=== PATIENT | female | born 1950 | race Caucasian/White ===

== ENCOUNTER → 2018-01-04 | Outpatient (CLI) | payer MEDICARE ==
[2018-01-04 17:32] LABS: ANION GAP 8 MEQ/L (8-16); BLOOD UREA NITROGEN 19 MG/DL (7-18); CALCIUM LEVEL 9.1 MG/DL (8.8-10.2); CARBON DIOXIDE LEVEL 24 MEQ/L (21-32); CHLORIDE LEVEL 109 MEQ/L (98-107); CREATININE FOR GFR 1.42 MG/DL (0.55-1.30); GLOMERULAR FILTRATION RATE 39.5 (>45); GLUCOSE, FASTING 99 MG/DL (70-100); POTASSIUM SERUM 4.1 MEQ/L (3.5-5.1); SODIUM LEVEL 141 MEQ/L (136-145)
== END ==
LOC: M LRY 13:09
DX: N18.9 Chronic kidney disease, unspecified (principal)
CPT/HCPCS: 80048

== ENCOUNTER → 2018-01-06 | Outpatient (CLI) | payer MEDICARE, MEDICAID | LOC: M PLARAD 13:47 | DX: M48.061 Spinal stenosis, lumbar region without neurogenic claudication (principal); M51.26 Other intervertebral disc displacement, lumbar region | CPT/HCPCS: 72148 ==

== ENCOUNTER → 2018-01-11 | Outpatient (CLI) | payer MEDICARE | LOC: M PAIN 13:00 | DX: M43.06 Spondylolysis, lumbar region (principal); I10 Essential (primary) hypertension; K21.9 Gastro-esophageal reflux disease without esophagitis; E78.00 Pure hypercholesterolemia, unspecified; F17.210 Nicotine dependence, cigarettes, uncomplicated; Z79.899 Other long term (current) drug therapy; Z88.8 Allergy status to other drugs, medicaments and biological substances | CPT/HCPCS: G0463 ==

== ENCOUNTER → 2018-01-28 | Outpatient (REF) | payer MEDICARE ==
[2018-01-28 18:51] LABS: BASO # 0.1 10^3/uL (0.0-0.2); BASO % 1.3 % (0.0-1.0); EOS # 0.1 10^3/uL (0.0-0.50); EOS % 1.3 % (0.0-3.0); HEMATOCRIT 44.5 % (36.0-47.0); HEMOGLOBIN 15.3 g/dl (12.0-16.0); IMMATURE GRANULOCYTE % 0.2 % (0-3.0); LYMPH # 2.1 10^3/uL (1.5-4.5); LYMPH % 33.2 % (24.0-44.0); MEAN CORPUSCULAR HEMOGLOBIN 32.1 pg (27.0-33.0); MEAN CORPUSCULAR HGB CONC 34.4 g/dl (32.0-36.5); MEAN CORPUSCULAR VOLUME 93.3 fl (80.0-96.0); MONO # 0.5 10^3/uL (0.0-0.8); MONO % 7.7 % (0.0-5.0); NEUTROPHILS # 3.6 10^3/uL (1.8-7.7); NEUTROPHILS % 56.3 % (36.0-66.0); PLATELET COUNT, AUTOMATED 195 10^3/uL (150-450); RED BLOOD COUNT 4.77 10^6/uL (4.00-5.40); RED CELL DISTRIBUTION WIDTH 12.7 % (11.5-14.5); WHITE BLOOD COUNT 6.4 10^3/uL (4.0-10.0)
[2018-01-28 18:53] LABS: APPEARANCE, URINE CLEAR (CLEAR); BACTERIA, URINE AUTO NEGATIVE (NEGATIVE); BILIRUBIN, URINE AUTO NEGATIVE (NEGATIVE); BLOOD, URINE BLOOD NEGATIVE (NEGATIVE); COLOR, URINE STRAW (YELLOW); GLUCOSE, URINE (UA) AUTO NEGATIVE (NEGATIVE); KETONE, URINE AUTO NEGATIVE (NEGATIVE); LEUKOCYTE ESTERASE, URINE AUTO NEGATIVE (NEGATIVE); NITRITE, URINE AUTO NEGATIVE (NEGATIVE); PROTEIN, URINE AUTO NEGATIVE (NEGATIVE); RBC, URINE AUTO 3 /HPF (0-3); SPECIFIC GRAVITY URINE AUTO 1.006 (1.002-1.035); SQUAMOUS EPITHELIAL CELL UR AU 1 /HPF (0-6); UROBILINOGEN, URINE AUTO 0.2 mg/dL (0.0-2.0); WBC, URINE AUTO 0 /HPF (0-3)
[2018-01-28 19:03] LABS: ALBUMIN 3.9 GM/DL (3.2-5.2); ALBUMIN/GLOBULIN RATIO 1.15 (1.00-1.93); ALKALINE PHOSPHATASE 66 U/L (45-117); ALT/SGPT 19 U/L (12-78); ANION GAP 10 MEQ/L (8-16); AST/SGOT 10 U/L (7-37); BILIRUBIN,TOTAL 0.3 MG/DL (0.2-1.0); BLOOD UREA NITROGEN 21 MG/DL (7-18); CALCIUM LEVEL 9.3 MG/DL (8.8-10.2); CARBON DIOXIDE LEVEL 25 MEQ/L (21-32); CHLORIDE LEVEL 107 MEQ/L (98-107); CREATININE FOR GFR 1.29 MG/DL (0.55-1.30); GLOMERULAR FILTRATION RATE 44.2 (>45); GLUCOSE, FASTING 70 MG/DL (70-100); POTASSIUM SERUM 3.8 MEQ/L (3.5-5.1); SODIUM LEVEL 142 MEQ/L (136-145); TOTAL PROTEIN 7.3 GM/DL (6.4-8.2)
== END ==
LOC: M SFHCLERA 16:27
DX: N18.3 Chronic kidney disease, stage 3 (moderate) (principal); R34 Anuria and oliguria
CPT/HCPCS: 80053

== ENCOUNTER → 2018-02-08 | Outpatient (CLI) | payer MEDICARE | LOC: M PAIN 10:00 | DX: M43.06 Spondylolysis, lumbar region (principal); G89.29 Other chronic pain; R01.1 Cardiac murmur, unspecified; E11.9 Type 2 diabetes mellitus without complications; I10 Essential (primary) hypertension; M19.90 Unspecified osteoarthritis, unspecified site; K21.9 Gastro-esophageal reflux disease without esophagitis; E78.00 Pure hypercholesterolemia, unspecified; F17.210 Nicotine dependence, cigarettes, uncomplicated; Z79.891 Long term (current) use of opiate analgesic; Z79.899 Other long term (current) drug therapy; Z88.8 Allergy status to other drugs, medicaments and biological substances; Z86.79 Personal history of other diseases of the circulatory system | CPT/HCPCS: G0463 ==

== ENCOUNTER → 2018-03-23 | Outpatient (REF) | payer MEDICARE ==
[2018-03-23 17:22] LABS: BASO # 0.1 10^3/uL (0.0-0.2); BASO % 1.3 % (0.0-1.0); EOS # 0.1 10^3/uL (0.0-0.50); EOS % 1.1 % (0.0-3.0); HEMATOCRIT 41.4 % (36.0-47.0); HEMOGLOBIN 14.2 g/dl (12.0-15.5); IMMATURE GRANULOCYTE % 0.2 % (0-3.0); LYMPH # 1.7 10^3/uL (1.5-4.5); LYMPH % 27.4 % (24.0-44.0); MEAN CORPUSCULAR HEMOGLOBIN 31.8 pg (27.0-33.0); MEAN CORPUSCULAR HGB CONC 34.3 g/dl (32.0-36.5); MEAN CORPUSCULAR VOLUME 92.6 fl (80.0-96.0); MONO # 0.4 10^3/uL (0.0-0.8); MONO % 6.8 % (0.0-5.0); NEUTROPHILS # 3.9 10^3/uL (1.8-7.7); NEUTROPHILS % 63.2 % (36.0-66.0); PLATELET COUNT, AUTOMATED 202 10^3/uL (150-450); RED BLOOD COUNT 4.47 10^6/uL (4.00-5.40); WHITE BLOOD COUNT 6.2 10^3/uL (4.0-10.0)
[2018-03-23 17:45] LABS: ESTIMATED AVERAGE GLUCOSE 105 MG/DL (60-110); HEMOGLOBIN A1c 5.3 %
[2018-03-23 17:52] LABS: ALBUMIN 3.9 GM/DL (3.2-5.2); ALBUMIN/GLOBULIN RATIO 1.08 (1.00-1.93); ALKALINE PHOSPHATASE 71 U/L (45-117); ALT/SGPT 27 U/L (12-78); ANION GAP 8 MEQ/L (8-16); AST/SGOT 18 U/L (7-37); BILIRUBIN,TOTAL 0.3 MG/DL (0.2-1.0); BLOOD UREA NITROGEN 29 MG/DL (7-18); CALCIUM LEVEL 9.1 MG/DL (8.8-10.2); CARBON DIOXIDE LEVEL 28 MEQ/L (21-32); CHLORIDE LEVEL 104 MEQ/L (98-107); CHOLESTEROL LEVEL 344 MG/DL (<200); CREATININE FOR GFR 1.62 MG/DL (0.55-1.30); GLOMERULAR FILTRATION RATE 33.9 (>45); GLUCOSE, FASTING 100 MG/DL (70-100); HDL CHOLESTEROL 63 MG/DL (>40); LDL CHOLESTEROL 246.2 MG/DL (<100); MAGNESIUM LEVEL 2.2 MG/DL (1.8-2.4); NON-HDL-C 281 MG/DL; POTASSIUM SERUM 3.6 MEQ/L (3.5-5.1); SODIUM LEVEL 140 MEQ/L (136-145); TOTAL PROTEIN 7.5 GM/DL (6.4-8.2); TRIGLYCERIDES LEVEL 174 MG/DL (<150)
[2018-03-23 17:57] LABS: MALB URINE SIEMENS 5.5 MG/L; MAU/CREAT RATIO 4.3 MCG/MG (0.0-30.0)
== END ==
LOC: M SFHCLERA 10:29
DX: K21.9 Gastro-esophageal reflux disease without esophagitis (principal); N18.9 Chronic kidney disease, unspecified; Z79.899 Other long term (current) drug therapy
CPT/HCPCS: 83735

== ENCOUNTER → 2018-04-12 | Outpatient (CLI) | payer MEDICARE | LOC: M PAIN 10:00 | DX: G89.29 Other chronic pain (principal); M43.06 Spondylolysis, lumbar region; I10 Essential (primary) hypertension; K21.9 Gastro-esophageal reflux disease without esophagitis; E78.5 Hyperlipidemia, unspecified; F17.210 Nicotine dependence, cigarettes, uncomplicated; R01.1 Cardiac murmur, unspecified; Z79.899 Other long term (current) drug therapy; Z88.8 Allergy status to other drugs, medicaments and biological substances; E11.9 Type 2 diabetes mellitus without complications | CPT/HCPCS: G0463 ==

== ENCOUNTER → 2018-05-01 | Outpatient (CLI) | payer MEDICARE, MEDICAID | LOC: M RAD 11:07 | DX: Z12.31 Encounter for screening mammogram for malignant neoplasm of breast (principal) | CPT/HCPCS: 77067 ==

== ENCOUNTER 2018-06-20 07:36 | Day surgery (SDC) | payer MEDICARE, MEDICAID ==
[2018-06-20] MEDS: NS 1,000 ML IV (07:45)
[2018-06-20] MEDS ORDERED: PROPOFOL 200 MG/20 ML VIAL As Ordered ×2 (08:20→09:32)
[2018-06-20] MEDS ORDERED: LIDOCAINE 2% INJ 100 MG/5 ML SDV (FOR ANES.) As Ordered (08:20)
== END 2018-06-20 10:24 | disposition home or self-care (01) ==
LOC: M OPP 07:36
DX: Z12.11 Encounter for screening for malignant neoplasm of colon (principal); Z80.0 Family history of malignant neoplasm of digestive organs; D12.2 Benign neoplasm of ascending colon; K64.0 First degree hemorrhoids; K57.30 Diverticulosis of large intestine without perforation or abscess without bleeding; I12.9 Hypertensive chronic kidney disease with stage 1 through stage 4 chronic kidney disease, or unspecified chronic kidney disease; E78.5 Hyperlipidemia, unspecified; I25.10 Atherosclerotic heart disease of native coronary artery without angina pectoris; K21.9 Gastro-esophageal reflux disease without esophagitis; R12 Heartburn; K29.70 Gastritis, unspecified, without bleeding; R06.02 Shortness of breath; N18.9 Chronic kidney disease, unspecified; M19.90 Unspecified osteoarthritis, unspecified site; M54.9 Dorsalgia, unspecified; F32.9 Major depressive disorder, single episode, unspecified; F41.9 Anxiety disorder, unspecified; E11.9 Type 2 diabetes mellitus without complications; R56.9 Unspecified convulsions; J45.909 Unspecified asthma, uncomplicated; J44.9 Chronic obstructive pulmonary disease, unspecified; F17.210 Nicotine dependence, cigarettes, uncomplicated; Z88.1 Allergy status to other antibiotic agents; Z88.8 Allergy status to other drugs, medicaments and biological substances; Z79.82 Long term (current) use of aspirin; Z79.899 Other long term (current) drug therapy; Z80.1 Family history of malignant neoplasm of trachea, bronchus and lung
CPT/HCPCS: 45385

== ENCOUNTER → 2018-07-05 | Outpatient (CLI) | payer MEDICARE, MEDICAID | LOC: M LRY 17:18 | DX: R06.02 Shortness of breath (principal) | CPT/HCPCS: 71046; 94640 ==

== ENCOUNTER → 2018-07-25 | Outpatient (CLI) | payer MEDICARE, MEDICAID | LOC: M RAD 09:45 | DX: Z12.2 Encounter for screening for malignant neoplasm of respiratory organs (principal); F17.210 Nicotine dependence, cigarettes, uncomplicated | CPT/HCPCS: G0297 ==

== ENCOUNTER → 2018-11-09 | Outpatient (CLI) | payer MEDICARE, MEDICAID ==
[~2018-11-09] MED LIST: ASPI1TAB15 PO; BUSP10TA PO; CART240C3 PO; CINN1CAP6 PO; DULO1CAP PO; FENT75PA TD; FERR325T3 PO; FURO40TA2 PO; INVA1INJ IV; KLOR10TA76 PO; LEVA250T13 PO; LIDO1PAD TD; LOSA50TA5 PO; OMEG100011 PO; OMEP40CA2 PO; OXYC1TAB23 PO; PERC7.5T11 PO; ROSU5TAB4 PO; SERT50TA PO; SIMV40TA2 PO; SYNT25TA PO; TOPI50TA9 PO; TRAZ-160 PO; VITA50005 PO; VITMTA PO
--- NOTE | 2018-11-15 15:07 | DEXA ---
AP SPINE L1 - L4 0.989 -1.7 -0.1 LT FEMUR TOTAL 0.802 -1.6 -0.4 LT NECK 0.710 -2.4 -0.8 RT FEMUR TOTAL 0.814 -1.5 -0.3 RT NECK 0.765 -2.0 -0.4 TOTAL BODY TOTAL OTHER COMMENTS: There is low bone density of the spine and hips. FOLLOW-UP: Recommendation for the next bone density exam: 2 years. BLANCO
== END ==
LOC: M WHC 14:13
PROVIDERS: ATTEND Family Medicine
DX: Z13.820 Encounter for screening for osteoporosis (principal); M85.88 Other specified disorders of bone density and structure, other site; M85.851 Other specified disorders of bone density and structure, right thigh; M85.852 Other specified disorders of bone density and structure, left thigh

== ENCOUNTER → 2018-11-19 | Outpatient (REF) | payer MEDICARE | LOC: M SFHCLERA 11:16 | PROVIDERS: ATTEND Nurse Practitioner Family | DX: K52.9 Noninfective gastroenteritis and colitis, unspecified (principal) | CPT/HCPCS: 82270; 87507; G0463 ==

== ENCOUNTER → 2019-02-15 | Outpatient (CLI) | payer MEDICARE, MEDICAID ==
[~2019-02-15] MED LIST changes: +FENT75DI18 TD; -FENT75PA TD; +SERT-141 PO; -SERT50TA PO
--- NOTE | 2019-02-15 13:05 | PFTRPT ---
Height: 65.50 Inches Weight: 230.00 Lbs BSA: 2.11 Diagnosis: R06.00 DATE OF PROCEDURE: 02/15/2019 ORDERED BY: Luis Lopez Spirometry: Pre and post bronchodilator study of excellent technical quality. Forced vital capacity normal. FEV1 in proportion. Obstructive index is, therefore, normal. Flow Volume Loop: Expiratory limb of the flow volume loop is normal. Lung Volumes: Total lung capacity normal. Residual volume is in proportion. Diffusing Capacity: Diffusing capacity is reduced but is appropriate for alveolar volume. Hemoglobin: Hemoglobin acceptable at 14.9. Airway Mechanics: Airway resistance marginally elevated with concomitant decrease in airway conductance. IMPRESSION: Mild diffusing capacity impairment requires clinical correlation. MTDD
== END ==
LOC: M CARPUL 11:54
PROVIDERS: ATTEND Physician Assistant
DX: R94.2 Abnormal results of pulmonary function studies (principal); R06.00 Dyspnea, unspecified

== ENCOUNTER → 2019-03-08 | Outpatient (CLI) | payer MEDICARE, MEDICAID ==
[~2019-03-08] MED LIST changes: +METHACHOLINE KIT (J7674) INH ONE
--- NOTE | 2019-03-08 15:34 | PFTRPT ---
Height: 65.50 Inches Weight: 226.00 Lbs BSA: 2.10 Diagnosis: R06.00 DATE OF PROCEDURE: 03/08/2019 ORDERED BY: JV Carlos It was ordered as a methacholine challenge but is done as a pre and post bronchodilator study. Spirometry: Excellent technical quality. Forced vital capacity normal. FEV1 in proportion. Obstructive index is, therefore, normal. Flow Volume Loop: Expiratory limb of the flow volume loop is normal. Only a 10% improvement post bronchodilator administered. IMPRESSION: Normal baseline study without any bronchodilator response. MTDD
== END ==
LOC: M CARPUL 12:02
PROVIDERS: ATTEND Physician Assistant
DX: R06.00 Dyspnea, unspecified (principal)
CPT/HCPCS: 95070; J7674

== ENCOUNTER → 2019-04-26 | Outpatient (REF) | payer MEDICARE, MEDICAID ==
[~2019-04-26] MED LIST changes: -METHACHOLINE KIT (J7674) INH ONE; -TRAZ-160 PO; +TRAZ-252 PO
[2019-04-26 17:35] LABS: HEMOGLOBIN A1c 5.9 %
[2019-04-26 17:45] LABS: ALBUMIN 3.5 GM/DL (3.2-5.2); BILIRUBIN,TOTAL 0.4 MG/DL (0.2-1.0); CALCIUM LEVEL 9.3 MG/DL (8.8-10.2); CHOLESTEROL RISK RATIO 4.83 (<5); CREATININE FOR GFR 1.76 MG/DL (0.55-1.30); GLOMERULAR FILTRATION RATE 30.8 (>45); POTASSIUM SERUM 4.4 MEQ/L (3.5-5.1); THYROID STIMULATING HORMONE 2.09 uIU/ML (0.358-3.740); TOTAL PROTEIN 7.1 GM/DL (6.4-8.2)
== END ==
LOC: M SFHCLERA 12:28
PROVIDERS: ATTEND Family Medicine
DX: E78.5 Hyperlipidemia, unspecified (principal); I10 Essential (primary) hypertension
CPT/HCPCS: 80053; 80061; 83036; 84443; G0463

== ENCOUNTER → 2019-05-24 | Outpatient (CLI) | payer MEDICARE, MEDICAID ==
[~2019-05-24] MED LIST changes: -DULO1CAP PO; +DULO1CAP4 PO; +METHACHOLINE KIT (J7674) INH ONE; -ROSU5TAB4 PO; +ROSU5TAB5 PO
--- NOTE | 2019-05-24 12:44 | PFTRPT ---
Height: 65.50 Inches Weight: 230.00 Lbs BSA: 2.11 Diagnosis: R06.00 DATE OF PROCEDURE: 05/24/2019 ORDERED BY: Luis Lopez PA-C INTERPRETATION: Study of excellent technical quality. Under protocol, methacholine was administered. At a dose of 0.25 mg or 1.375 CDUs, a 27% decline in the FEV1 was noted. PC of 0.12 is significant. Flow rates did return to baseline post bronchodilator administration. IMPRESSION: Positive methacholine challenge study. MTDD
== END ==
LOC: M CARPUL 12:00
PROVIDERS: ATTEND Physician Assistant
DX: R06.00 Dyspnea, unspecified (principal)
CPT/HCPCS: 94070; 95070; J7674

== ENCOUNTER → 2019-05-25 | Outpatient (CLI) | payer MEDICARE, MEDICAID ==
[~2019-05-25] MED LIST changes: -METHACHOLINE KIT (J7674) INH ONE
--- NOTE | 2019-05-25 19:01 | REP ---
CT study of the chest without contrast: History: Short of breath. Pain. Question left rib fractures. Comparison CT study is a low-dose screening exam from July 25, 2018. CT findings: Preliminary digital director of vendor management radiograph is unremarkable. There is no evidence of pleural or pericardial effusion. No hilar or mediastinal mass or adenopathy is observed. Fairly extensive vascular calcification is seen. Gallbladder surgically absent. No adrenal lesion is observed. The visualized upper abdominal structures are otherwise unremarkable. No mediastinal mass or adenopathy. No hilar adenopathy is seen. On bone window settings, there is an area of sclerosis of the surrounding a linear cleft in the anterior end of the 6th left rib consistent with healing left rib fracture. This is new from July 25, 2018. No other rib fracture is appreciated. No bony destructive lesion is seen. Subcortical cyst formation is seen in the glenoid on the left. This is unchanged. Impression: Healing fracture anterior and left sixth rib. Otherwise no acute disease. Electronically Signed by Wagner Valladares MD 05/25/2019 08:27 P
== END ==
LOC: M RAD 12:24
PROVIDERS: ATTEND Internal Medicine Nephrology
DX: S22.32XD Fracture of one rib, left side, subsequent encounter for fracture with routine healing (principal); X58.XXXD Exposure to other specified factors, subsequent encounter

== ENCOUNTER → 2019-09-04 | Outpatient (REF) | payer MEDICARE, MEDICAID ==
[~2019-09-04] MED LIST changes: -OMEP40CA2 PO; +OMEP40CA97 PO
[2019-09-04 17:16] LABS: BILIRUBIN,TOTAL 0.5 MG/DL (0.2-1.0); CHOLESTEROL RISK RATIO 5.122 (<5); CREATININE FOR GFR 2.01 MG/DL (0.55-1.30); GLOMERULAR FILTRATION RATE 26.3 (>45); POTASSIUM SERUM 4.3 MEQ/L (3.5-5.1); TOTAL PROTEIN 7.6 GM/DL (6.4-8.2)
== END ==
LOC: M SFHCLERA 10:45
PROVIDERS: ATTEND Family Medicine
DX: I10 Essential (primary) hypertension (principal); E78.5 Hyperlipidemia, unspecified
CPT/HCPCS: 80053; 80061; 90682; G0008; G0463

== ENCOUNTER → 2019-10-16 | Outpatient (REF) | payer MEDICARE, MEDICAID ==
[~2019-10-16] MED LIST changes: -SIMV40TA2 PO; +SIMV40TA20 PO
[2019-10-16 15:49] LABS: HEMOGLOBIN A1c 5.8 %
[2019-10-16 15:53] LABS: FREE T4 0.83 NG/DL (0.76-1.46); THYROID STIMULATING HORMONE 1.69 uIU/ML (0.358-3.740); TOTAL T3 81.7 NG/DL (60.0-181.0)
== END ==
LOC: M LAB REF 14:00
PROVIDERS: ATTEND Nurse Practitioner Family
DX: E03.9 Hypothyroidism, unspecified (principal); R73.9 Hyperglycemia, unspecified

== ENCOUNTER → 2021-05-21 | Outpatient (CLI) | payer OTHER ==
[~2021-05-21] MED LIST changes: +ASPI-546 PO; -ASPI1TAB15 PO; +OMEP40CA4 PO; -OMEP40CA97 PO
--- NOTE | 2021-05-21 08:41 | REP ---
INDICATION: SPONDYLOLISTHESIS LUMBAR REGION. COMPARISON: Comparison MRI study of the lumbar spine is from September 21, 2019.. TECHNIQUE: Sagittal and axial T1 and T2-weighted scans are acquired in the usual fashion with and without fat saturation. Sequences include spin echo, turbo spin-echo, and STIR imaging sequences. FINDINGS: Lumbar vertebral body heights are preserved. There is diffuse degenerative disc disease and spondylosis change. There is a grade 1 degenerative, 5 mm, L4-5 spondylolisthesis. Alignment is otherwise normal. Axial and sagittal images at L4-5 demonstrate a change from the prior study. There is a new moderate to large left posterior disc protrusion at L4-5 which has a cranially extruded fragment extending along the posterior margin of the L4 vertebral body nearly to its superior endplate. This compresses the left ventral margin of the thecal sac and the exiting 5th lumbar root on the left. There is advanced osteoarthritic facet hypertrophy and ligamentum flavum hypertrophy at this level as well. Overall canal size is somewhat decreased. There is mild left-sided foraminal narrowing due to facet hypertrophy. At L5-S1, today's images again demonstrate a left paracentral focal disc protrusion which effaces the ventral epidural fat and contacts the left S1 root. No thecal sac deformity. The disc protrusion extends caudally a few mm and is unchanged from the 2019 prior study. There is facet osteoarthritis bilaterally also unchanged. At the L3-4 disc level, there is mild diffuse disc bulging unchanged. At L2-3, there is degenerative disc narrowing and diffuse disc bulging indenting the ventral margin of the thecal sac. There is left foraminal disc bulging producing mild left foraminal narrowing. These findings are unchanged. At the L1-2 disc level today's study again demonstrates degenerative disc narrowing and diffuse disc bulging. Incidental note is made of bilateral renal cortical cysts which appear to be unchanged. IMPRESSION: Degenerative spondylosis changes stable at each level since the 2019 study except for L4-5 where there is a new moderate to large cranially extruded L4-5 disc protrusion. There is some surrounding edema. Moderate thecal sac and left 5th lumbar root compression. <Electronically signed by Ankur Valladares > 05/21/21 [id number]
== END ==
LOC: M RAD 07:21
PROVIDERS: ATTEND Orthopaedic Surgery
DX: M43.16 Spondylolisthesis, lumbar region (principal)

== ENCOUNTER → 2021-05-27 | Outpatient (CLI) | payer OTHER, MEDICAID ==
[2021-05-27 17:29] LABS: CALCIUM LEVEL 9.8 MG/DL (8.8-10.2); CHOLESTEROL RISK RATIO 8.204 (<5); CREATININE FOR GFR 2.01 MG/DL (0.55-1.30); GLOMERULAR FILTRATION RATE 26.2 (>45); POTASSIUM SERUM 4.3 MEQ/L (3.5-5.1)
[2021-05-27 17:34] LABS: CREATININE, URINE 53.5 MG/DL; MALB URINE SIEMENS 79.2 MG/L
[2021-05-27 18:09] LABS: HEMOGLOBIN A1c 6.1 %
== END ==
LOC: M WUC 11:38
PROVIDERS: ATTEND Family Medicine
DX: E78.5 Hyperlipidemia, unspecified (principal); E11.9 Type 2 diabetes mellitus without complications; Z11.59 Encounter for screening for other viral diseases
CPT/HCPCS: 36415; 80048; 80061; 82043; 83036; 86803; G0463

== ENCOUNTER → 2021-07-02 | Outpatient (REF) | payer OTHER, MEDICAID | LOC: M LAB REF 17:25 | PROVIDERS: ATTEND Nurse Practitioner Family | DX: I82.402 Acute embolism and thrombosis of unspecified deep veins of left lower extremity (principal); E83.42 Hypomagnesemia ==

== ENCOUNTER → 2021-12-01 | Outpatient (CLI) | payer OTHER, MEDICAID ==
[~2021-12-01] MED LIST changes: -KLOR10TA76 PO; +POTA-136 PO
== END ==
LOC: M RAD 11:01
PROVIDERS: ATTEND Physician Assistant
DX: R91.8 Other nonspecific abnormal finding of lung field (principal)

== ENCOUNTER → 2022-02-02 | Outpatient (CLI) | payer OTHER, MEDICAID | LOC: M RAD 13:31 | PROVIDERS: ATTEND Nurse Practitioner Family | DX: N18.4 Chronic kidney disease, stage 4 (severe) (principal); N28.1 Cyst of kidney, acquired ==

== ENCOUNTER → 2022-04-14 | Outpatient (CLI) | payer MEDICAID, OTHER | LOC: M RAD 07:39 | PROVIDERS: ATTEND Nurse Practitioner Family | DX: I12.9 Hypertensive chronic kidney disease with stage 1 through stage 4 chronic kidney disease, or unspecified chronic kidney disease (principal); N18.4 Chronic kidney disease, stage 4 (severe) ==

== ENCOUNTER → 2022-04-21 | Outpatient (CLI) | payer OTHER | LOC: M WUC 10:50 | PROVIDERS: ATTEND Nurse Practitioner Family | DX: R06.02 Shortness of breath (principal) ==

== ENCOUNTER → 2022-04-21 | Outpatient (REF) | payer OTHER | LOC: M LAB REF 16:54 | PROVIDERS: ATTEND Nurse Practitioner Family | DX: R06.02 Shortness of breath (principal) ==

== ENCOUNTER → 2022-08-31 | Outpatient (CLI) | payer OTHER, MEDICAID | LOC: M RAD 11:34 | PROVIDERS: ATTEND Family Medicine | DX: M54.50 Low back pain, unspecified (principal) ==

== ENCOUNTER → 2022-09-07 | Outpatient (CLI) | payer OTHER, MEDICAID | LOC: M RAD 13:18 | PROVIDERS: ATTEND Family Medicine | DX: M54.50 Low back pain, unspecified (principal); N28.1 Cyst of kidney, acquired ==

== ENCOUNTER → 2022-10-11 | Outpatient (CLI) | payer OTHER | LOC: M RAD 16:12 | PROVIDERS: ATTEND Physician Assistant | DX: M51.36 Other intervertebral disc degeneration, lumbar region (principal); M51.37 Other intervertebral disc degeneration, lumbosacral region; M51.26 Other intervertebral disc displacement, lumbar region; M43.16 Spondylolisthesis, lumbar region ==

== ENCOUNTER → 2022-11-25 | Outpatient (CLI) | payer OTHER ==
[2022-11-25 10:24] LABS: ALBUMIN 3.7 G/DL (3.2-5.2); BILIRUBIN,TOTAL 0.4 MG/DL (0.3-1.2); CALCIUM LEVEL 9.3 MG/DL (8.3-10.6); CHOLESTEROL RISK RATIO 4.41 (<5); CREATININE FOR GFR 1.51 MG/DL (0.55-1.30); GLOMERULAR FILTRATION RATE 36.3 (>39); HDL CHOLESTEROL 44.2 MG/DL (>40); LDL CHOLESTEROL 101.6 MG/DL (<100); TOTAL PROTEIN 6.6 G/DL (5.7-8.2)
[2022-11-25 10:45] LABS: HEMOGLOBIN A1c 5.7 % (4.0-6.0)
[2022-11-25 13:35] LABS: CREATININE, URINE 46.8 MG/DL; CREATININE,RANDOM URINE 46.8 MG/DL; MAU/CREAT RATIO 288.4 MCG/MG (0.0-30.0)
[2022-11-25 13:40] LABS: APPEARANCE, URINE MANUAL CLEAR (CLEAR); COLOR, URINE MANUAL YELLOW (YELLOW); SPECIFIC GRAVITY,URINE MANUAL 1.003 (1.002-1.035)
[2022-11-25 13:41] LABS: BILIRUBIN, URINE MANUAL NEGATIVE (NEGATIVE); BLOOD URINE MANUAL NEGATIVE (NEGATIVE); GLUCOSE, URINE (UA) MANUAL NEGATIVE (NEGATIVE); KETONE, URINE MANUAL NEGATIVE (NEGATIVE); LEUKOCYTE ESTERASE, URINE MAN NEGATIVE (NEGATIVE); NITRITE, URINE MANUAL NEGATIVE (NEGATIVE); PROTEIN, URINE MANUAL 1+ mg/dL (NEGATIVE); UROBILINOGEN, URINE MANUAL NORMAL (NORMAL)
[2022-11-25 13:55] LABS: WBC, URINE 0-1 /hpf (0-3)
[2022-11-25 13:56] LABS: BACTERIA, URINE SMALL AMOUNT; HYALINE CAST, URINE NONE SEEN /lpf (0-1); RBC, URINE 0-1 /hpf (0-3); SQUAMOUS EPITHELIAL CELL URINE SMALL AMOUNT /hpf (SMALL AMT)
== END ==
LOC: M LAB 09:00
PROVIDERS: ATTEND Family Medicine
DX: N18.30 Chronic kidney disease, stage 3 unspecified (principal); E78.5 Hyperlipidemia, unspecified; E11.9 Type 2 diabetes mellitus without complications

== ENCOUNTER → 2022-12-13 | Outpatient (CLI) | payer OTHER, MEDICAID | LOC: M RAD 08:45 | PROVIDERS: ATTEND Physician Assistant | DX: Z12.2 Encounter for screening for malignant neoplasm of respiratory organs (principal); F17.218 Nicotine dependence, cigarettes, with other nicotine-induced disorders; J47.9 Bronchiectasis, uncomplicated ==

== ENCOUNTER → 2023-03-11 | Outpatient (CLI) | payer OTHER, MEDICAID ==
[~2023-03-11] MED LIST changes: +TOPI-254 PO; -TOPI50TA9 PO
== END ==
LOC: M RAD 10:38
PROVIDERS: ATTEND Physician Assistant
DX: R09.89 Other specified symptoms and signs involving the circulatory and respiratory systems (principal)

== ENCOUNTER → 2023-05-09 | Outpatient (CLI) | payer OTHER, MEDICAID ==
[~2023-05-09] MED LIST changes: +ALLO100T PO; +BUSP1TAB PO; +GABA-282 PO; +HYDR-3910 PO; +ISOS1TAB35 PO; +LOSA50TA28 PO; +POTA-149 PO; +SYMB16INH INH; +TIOT18INH INH
== END ==
LOC: M RAD 10:13
PROVIDERS: ATTEND Family Medicine
DX: M54.2 Cervicalgia (principal)

== ENCOUNTER 2023-05-23 11:07 | Day surgery (SDC) | payer OTHER ==
[~2023-05-23] VITALS: Ht 167.6 cm; Wt 108.9 kg
[~2023-05-23 11:07] MED LIST changes: +NS 1,000 ML IV ONE
[2023-05-23] MEDS ORDERED: oxyCODONE 5MG TAB PO STA (12:38)
[2023-05-23] MEDS ORDERED: propofoL 200 MG/20 ML VIAL As Ordered ONE ×3 (13:02→13:47)
[2023-05-23 13:58] VITALS: TEMP 97.5
[2023-05-23 14:19] VITALS: BP 187/79; O2SAT 97
== END 2023-05-23 14:26 | disposition home or self-care (01) ==
LOC: M OPP 11:07
PROVIDERS: ATTEND Internal Medicine Gastroenterology
DX: Z80.0 Family history of malignant neoplasm of digestive organs (principal); D12.6 Benign neoplasm of colon, unspecified; K64.0 First degree hemorrhoids; K57.30 Diverticulosis of large intestine without perforation or abscess without bleeding; F17.200 Nicotine dependence, unspecified, uncomplicated; Z79.82 Long term (current) use of aspirin; Z79.83 Long term (current) use of bisphosphonates; Z79.899 Other long term (current) drug therapy

== ENCOUNTER → 2024-01-12 | Outpatient (CLI) | payer OTHER ==
[~2024-01-12] MED LIST changes: -HYDR-3910 PO; +HYDR25TA87 PO; -NS 1,000 ML IV ONE; +TOPI-21 PO; -TOPI-254 PO
== END ==
LOC: M RAD 15:01
PROVIDERS: ATTEND Physician Assistant
DX: Z12.2 Encounter for screening for malignant neoplasm of respiratory organs (principal); F17.218 Nicotine dependence, cigarettes, with other nicotine-induced disorders; J84.9 Interstitial pulmonary disease, unspecified; I70.0 Atherosclerosis of aorta; I25.10 Atherosclerotic heart disease of native coronary artery without angina pectoris

== ENCOUNTER 2024-01-20 17:47 | Emergency (ER) | payer OTHER ==
[~2024-01-20] VITALS: Ht 165.1 cm; Wt 112.1 kg
[2024-01-20] MEDS: ASPIRIN 81MG CHEW TABLET PO ONE (18:40)
[2024-01-20 18:44] VITALS: BP 159/75
[2024-01-20] MEDS: NITROGLYCERIN 2% OINT 1 GM *U/D* PKT TOP ONE (18:44)
[2024-01-20 18:55] LABS: BASO # 0.1 10^3/uL (0.0-0.2); BASO % 1.2 % (0.0-1.0); EOS # 0.2 10^3/uL (0.0-0.5); EOS % 2.3 % (0.0-3.0); HEMATOCRIT 39.7 % (36.0-47.0); HEMOGLOBIN 13.1 g/dl (12.0-15.5); LYMPH # 2.5 10^3/uL (1.5-5.0); LYMPH % 32.3 % (24.0-44.0); MEAN CORPUSCULAR HEMOGLOBIN 31.9 pg (27.0-33.0); MEAN CORPUSCULAR VOLUME 96.6 fl (80.0-96.0); MONO # 0.5 10^3/uL (0.0-0.8); MONO % 6.1 % (2.0-8.0); NEUTROPHILS # 4.5 10^3/uL (1.5-8.5); NEUTROPHILS % 57.7 % (36.0-66.0); PLATELET COUNT, AUTOMATED 199 10^3/uL (150-450); RED BLOOD COUNT 4.11 10^6/uL (4.00-5.40); WHITE BLOOD COUNT 7.8 10^3/uL (4.0-10.0)
[2024-01-20 19:06] LABS: LIPASE 33 U/L (12-53)
[2024-01-20 19:08] LABS: ALBUMIN 3.7 G/DL (3.2-5.2); ALKALINE PHOSPHATASE 88 U/L (46-116); ALT/SGPT 20 U/L (7.0-40); AST/SGOT 17 U/L (<34); BILIRUBIN,DIRECT < 0.1 MG/DL (<0.4); BILIRUBIN,TOTAL 0.3 MG/DL (0.3-1.2); BLOOD UREA NITROGEN 22 MG/DL (9-23); CALCIUM LEVEL 8.7 MG/DL (8.3-10.6); CARBON DIOXIDE LEVEL 24 MMOL/L (20-31); CHLORIDE LEVEL 108 MMOL/L (98-107); CK-MB VALUE MASS 1.5 NG/ML (<3.6); CREATININE FOR GFR 1.46 MG/DL (0.55-1.30); GLOMERULAR FILTRATION RATE 37.6 (>39); GLUCOSE, FASTING 97 MG/DL (74-106); POTASSIUM SERUM 3.5 MMOL/L (3.5-5.1); SODIUM LEVEL 139 MMOL/L (136-145); TOTAL PROTEIN 6.7 G/DL (5.7-8.2)
[2024-01-20 19:10] LABS: THYROID STIMULATING HORMONE 2.216 uIU/ML (0.55-4.78)
[2024-01-20 19:11] LABS: FREE T4 0.71 NG/DL (0.89-1.76)
[2024-01-20 19:17] LABS: RSV AMPLIFICATION NEGATIVE (NEGATIVE)
[2024-01-20 19:23] LABS: CPK CREATINE PHOSPHOKINASE 158 U/L (34-145); MB/CK RELATIVE INDEX 0.94 (< OR =4)
[2024-01-20 20:09] LABS: CK-MB VALUE MASS 1.1 NG/ML (<3.6)
[2024-01-20 20:12] LABS: MB/CK RELATIVE INDEX 0.78 (< OR =4)
[2024-01-20] MEDS ORDERED: ISOS1TAB35 PO (20:54)
[2024-01-20 21:01] VITALS: BP 164/78; TEMP 98; O2SAT 96
== END 2024-01-20 21:28 | disposition home or self-care (01) ==
LOC: M ED 17:47
DX: I20.9 Angina pectoris, unspecified (principal); I11.9 Hypertensive heart disease without heart failure; E11.9 Type 2 diabetes mellitus without complications; N18.9 Chronic kidney disease, unspecified; F17.200 Nicotine dependence, unspecified, uncomplicated; Z88.0 Allergy status to penicillin; Z88.8 Allergy status to other drugs, medicaments and biological substances; Z79.82 Long term (current) use of aspirin; Z79.899 Other long term (current) drug therapy

== ENCOUNTER 2024-02-14 11:23 | Observation (INO) | payer OTHER, MEDICAID ==
[~2024-02-14] VITALS: Ht 165.1 cm; Wt 114.4 kg
[2024-02-14] MEDS ORDERED: ISOVUE-370 76% 100ML VIAL As Ordered ONE (11:35)
[2024-02-14 11:51] LABS: BASO # 0.1 10^3/uL (0.0-0.2); EOS # 0.1 10^3/uL (0.0-0.5); EOS % 1.7 % (0.0-3.0); HEMATOCRIT 40.5 % (36.0-47.0); HEMOGLOBIN 13.2 g/dl (12.0-15.5); LYMPH # 1.2 10^3/uL (1.5-5.0); LYMPH % 19.9 % (24.0-44.0); MEAN CORPUSCULAR HEMOGLOBIN 32.3 pg (27.0-33.0); MEAN CORPUSCULAR HGB CONC 32.6 g/dl (32.0-36.5); MONO # 0.3 10^3/uL (0.0-0.8); MONO % 5.7 % (2.0-8.0); NEUTROPHILS # 4.3 10^3/uL (1.5-8.5); NEUTROPHILS % 71.4 % (36.0-66.0); PLATELET COUNT, AUTOMATED 168 10^3/uL (150-450); RED BLOOD COUNT 4.09 10^6/uL (4.00-5.40)
[2024-02-14 12:04] LABS: INR 0.97; PARTIAL THROMBOPLASTIN TIME 26.7 SECONDS (24.8-34.2); PROTHROMBIN TIME 12.6 SECONDS (12.5-14.5)
[2024-02-14 12:05] VITALS: BP 186/78; TEMP 98.1; O2SAT 98
[2024-02-14 12:18] LABS: CREATININE FOR GFR 1.65 MG/DL (0.55-1.30); GLOMERULAR FILTRATION RATE 32.6 (>39); POTASSIUM SERUM 3.8 MMOL/L (3.5-5.1)
[2024-02-14] MEDS ORDERED: MED REC IN PROGRESS XX SCH (13:10)
[2024-02-14] MEDS: NS 1,000 ML IV ONE ×2 (13:30→16:48)
[2024-02-14] MEDS ORDERED: ISOS1TAB36 PO (13:57)
[2024-02-14] MEDS ORDERED: FAMO40TA3 PO (13:57)
[2024-02-14] MEDS ORDERED: LOSA100T46 PO (13:57)
[2024-02-14] MEDS ORDERED: FURO20TA2 PO (13:57)
[2024-02-14] MEDS ORDERED: MULT-40 PO (13:57)
[2024-02-14] MEDS ORDERED: HYDR-3713 PO (13:57)
[2024-02-14] MEDS ORDERED: ZOLO100T PO (13:57)
[2024-02-14] MEDS ORDERED: ROSU40TA4 PO (13:57)
[2024-02-14] MEDS ORDERED: CLOP75TA2 PO (13:57)
[2024-02-14] MEDS ORDERED: HOME MED LIST COMPLETE! XX SCH (14:00)
[2024-02-14 15:40] VITALS: BP 146/73; TEMP 97.3; O2SAT 98
[2024-02-14] MEDS: ENOXAPARIN 40MG/0.4ML SYRINGE (J1650 PER 10MG) SC ONE (15:50)
[2024-02-14] MEDS ORDERED: PILL CUTTER 1 EACH XX PRN (16:30)
[2024-02-14] MEDS ORDERED: NS 1,000 ML IV ONE (17:05)
[2024-02-14 17:25] VITALS: BP 210/100
[2024-02-14] MEDS ORDERED: cloNIDine 0.1MG TABLET PO ONE (17:30)
[2024-02-14] MEDS ORDERED: LOSARTAN 25 MG TAB PO ONE (17:30)
[2024-02-14] MEDS: hydrALAZINE 20MG/ML 1ML VIAL IV STA (17:34)
[2024-02-14 18:14] VITALS: BP 188/74
[2024-02-14] MEDS: ACETAMINOPHEN *IV* 1,000 MG in IV 1 EA IV ONE (19:51)
[2024-02-14 19:55] VITALS: BP 163/76; TEMP 97.1; O2SAT 98
[2024-02-14] MEDS: GABAPENTIN 300 MG CAP PO SCH (19:55)
[2024-02-14] MEDS: SERTRALINE 100 MG TAB PO SCH (19:55)
[2024-02-14] MEDS: busPIRone 5 MG TAB PO SCH (19:56)
[2024-02-14] MEDS: **hydrALAZINE HCL** 25 MG TAB PO SCH (19:56)
[2024-02-14] MEDS: ENOXAPARIN 40MG/0.4ML SYRINGE (J1650 PER 10MG) SC SCH (19:57)
[2024-02-14] MEDS: oxyCODONE 5MG TAB PO ONE (19:57)
[2024-02-14] MEDS: traZODone 50 MG TAB PO SCH (19:57)
[2024-02-14] MEDS: SYMBICORT 160/4.5MCG INHALER 6GM INH SCH (20:09)
[2024-02-14 23:55] VITALS: BP 173/73; TEMP 98.6; O2SAT 98
[2024-02-15 03:59] VITALS: BP 143/66; TEMP 97.3; O2SAT 96
[2024-02-15 06:24] LABS: HEMATOCRIT 35.6 % (36.0-47.0); HEMOGLOBIN 11.5 g/dl (12.0-15.5); MEAN CORPUSCULAR HEMOGLOBIN 32.3 pg (27.0-33.0); MEAN CORPUSCULAR HGB CONC 32.3 g/dl (32.0-36.5); PLATELET COUNT, AUTOMATED 148 10^3/uL (150-450); RED BLOOD COUNT 3.56 10^6/uL (4.00-5.40); WHITE BLOOD COUNT 4.3 10^3/uL (4.0-10.0)
[2024-02-15 07:11] LABS: CALCIUM LEVEL 8.7 MG/DL (8.3-10.6); CHOLESTEROL RISK RATIO 3.78 (<5); CREATININE FOR GFR 1.6 MG/DL (0.55-1.30); GLOMERULAR FILTRATION RATE 33.8 (>39); HDL CHOLESTEROL 40.4 MG/DL (>40); LDL CHOLESTEROL 71.4 MG/DL (<100); NON-HDL-C 112.6 MG/DL; POTASSIUM SERUM 3.8 MMOL/L (3.5-5.1)
[2024-02-15 07:31] VITALS: BP 190/79; TEMP 97.1; O2SAT 94
[2024-02-15] MEDS: TIOTROPIUM INHALER/CAPSULE (SPIRIVA) INH SCH (08:39)
[2024-02-15] MEDS: CLOPIDOGREL 75 MG TAB PO SCH (09:34)
[2024-02-15] MEDS: allopurinoL 100 MG TAB PO SCH (09:34)
[2024-02-15] MEDS: ASPIRIN 81MG ENTERIC TABLET PO SCH (09:34)
[2024-02-15] MEDS: ROSUVASTATIN 10 MG TAB (CRESTOR) PO SCH (09:34)
[2024-02-15] MEDS: FAMOTIDINE 20 MG TAB PO SCH (09:34)
[2024-02-15] MEDS: TOPIRAMATE (TopAMAX) 25 MG TAB PO SCH (09:42)
[2024-02-15] MEDS: dilTIAZem 120MG **CD** CAPSULE PO SCH (09:42)
[2024-02-15] MEDS: LOSARTAN 50MG TABLET PO SCH (09:43)
[2024-02-15] MEDS: FUROSEMIDE 40 MG TAB PO SCH (09:43)
[2024-02-15] MEDS: ISOSORBIDE MON. (IMDUR) 60MG XR TAB PO SCH (09:44)
[2024-02-15 11:44] VITALS: BP 142/67; TEMP 97.4; O2SAT 97
[2024-02-15] MEDS: FLUZONE HIGH DOSE(65YR UP)QUAD/PF 240MCG/0.7ML SYRINGE IM.IMMUN ONE (14:22)
[2024-02-15] MEDS: PERCOCET 5MG/325MG TAB PO PRN (15:05)
[2024-02-15 16:00] VITALS: BP 136/62; TEMP 96.4; O2SAT 98
[2024-02-15 19:39] VITALS: BP 149/65; TEMP 98.5; O2SAT 93
[2024-02-15] MEDS: FUROSEMIDE 20 MG TAB PO SCH (20:51)
[2024-02-15 23:05] VITALS: BP 130/62; TEMP 98.3; O2SAT 96
[2024-02-16] VITALS (8 sets, daily range): BP systolic 105–145; BP diastolic 51–82; TEMP 97.5–98.7; O2SAT 94–100
[2024-02-16 06:13] LABS: HEMATOCRIT 34.2 % (36.0-47.0); MEAN CORPUSCULAR HGB CONC 32.2 g/dl (32.0-36.5); MEAN CORPUSCULAR VOLUME 99.4 fl (80.0-96.0); PLATELET COUNT, AUTOMATED 150 10^3/uL (150-450); RED BLOOD COUNT 3.44 10^6/uL (4.00-5.40); WHITE BLOOD COUNT 5.2 10^3/uL (4.0-10.0)
[2024-02-16 06:35] LABS: CALCIUM LEVEL 8.7 MG/DL (8.3-10.6); CREATININE FOR GFR 1.68 MG/DL (0.55-1.30); POTASSIUM SERUM 3.7 MMOL/L (3.5-5.1)
[2024-02-16] MEDS: ISOSORBIDE MON. (IMDUR) 30MG XR TAB PO SCH (08:35)
[2024-02-16] MEDS ORDERED: TRIAMCINOLONE ACET 0.1% OINTMENT 80GM TOP SCH (21:00)
[2024-02-16] MEDS: diphenhydrAMINE CREAM 30GM TOP SCH (21:35)
[2024-02-17 04:47] VITALS: BP 123/58; TEMP 97.4; O2SAT 95
[2024-02-17 06:05] LABS: MEAN CORPUSCULAR HEMOGLOBIN 32.2 pg (27.0-33.0); MEAN CORPUSCULAR HGB CONC 32.4 g/dl (32.0-36.5); MEAN CORPUSCULAR VOLUME 99.4 fl (80.0-96.0); PLATELET COUNT, AUTOMATED 148 10^3/uL (150-450); RED BLOOD COUNT 3.42 10^6/uL (4.00-5.40); WHITE BLOOD COUNT 4.8 10^3/uL (4.0-10.0)
[2024-02-17 06:27] LABS: CALCIUM LEVEL 8.9 MG/DL (8.3-10.6); CREATININE FOR GFR 1.75 MG/DL (0.55-1.30); GLOMERULAR FILTRATION RATE 30.5 (>39); POTASSIUM SERUM 4.3 MMOL/L (3.5-5.1)
[2024-02-17 07:35] VITALS: BP 151/65; TEMP 97.2; O2SAT 93
[2024-02-17 08:55] VITALS: BP 152/62
== END 2024-02-17 12:19 | disposition home health service (06) ==
LOC: M ED 11:23 → EDBD 11:23 → M ED INP 13:11 → INTOOBSV 13:11 → M PCU 15:33
PROVIDERS: ADMIT General Practice; ATTEND General Practice
DX: R20.2 Paresthesia of skin (principal); I65.23 Occlusion and stenosis of bilateral carotid arteries; M43.16 Spondylolisthesis, lumbar region; M51.26 Other intervertebral disc displacement, lumbar region; I25.10 Atherosclerotic heart disease of native coronary artery without angina pectoris; Z98.61 Coronary angioplasty status; F17.210 Nicotine dependence, cigarettes, uncomplicated; J44.9 Chronic obstructive pulmonary disease, unspecified; E78.5 Hyperlipidemia, unspecified; I10 Essential (primary) hypertension; Z79.82 Long term (current) use of aspirin; Z88.1 Allergy status to other antibiotic agents; Z88.8 Allergy status to other drugs, medicaments and biological substances; Z79.899 Other long term (current) drug therapy; Z23 Encounter for immunization
CPT/HCPCS: 36415; 70450; 70496; 70498; 70551; 71045; 72141; 72148; 80047; 80048; 80061; 85025; 85027; 85610; 85730; 90662; 93005; 93041; 93306; 94640; 94760; 96372; 96374; 96375; 96376; 97116; 97161; 97165; 97530; 97535; 99285; G0008; G0378; J0131; J0360; J1650; Q9967

== ENCOUNTER → 2024-05-22 | Outpatient (CLI) | payer OTHER, MEDICAID ==
[~2024-05-22] MED LIST changes: +CLOP75TA2 PO; +FAMO40TA3 PO; +FURO20TA2 PO; +HYDR-3713 PO; +ISOS1TAB36 PO; +LOSA100T46 PO; +MULT-40 PO; +ROSU40TA63 PO; +ROSU5TAB40 PO; -ROSU5TAB5 PO; +ZOLO100T PO
== END ==
LOC: M RAD 10:11
PROVIDERS: ATTEND Physician Assistant
DX: R51.9 Headache, unspecified (principal)

== ENCOUNTER → 2024-05-31 | Outpatient (CLI) | payer OTHER, MEDICAID | LOC: M RAD 13:20 | PROVIDERS: ATTEND Family Medicine | DX: M19.012 Primary osteoarthritis, left shoulder (principal) ==

== ENCOUNTER 2024-06-28 21:35 | Emergency (ER) | payer OTHER, MEDICAID ==
[~2024-06-28] VITALS: Ht 170.2 cm; Wt 123.5 kg
[2024-06-28] MEDS: NORCO, ANEXSIA 5/325MG TABLET (HYDROcodone/ACETAMINOPHEN) PO ONE (23:18)
[2024-06-28 23:24] LABS: BASO # 0.1 10^3/uL (0.0-0.2); BASO % 0.9 % (0.0-1.0); BLOOD UREA NITROGEN 32 MG/DL (9-23); CARBON DIOXIDE LEVEL 25 MMOL/L (20-31); CHLORIDE LEVEL 110 MMOL/L (98-107); CK-MB VALUE MASS < 1.0 NG/ML (<3.6); CREATININE FOR GFR 1.89 MG/DL (0.55-1.30); EOS # 0.3 10^3/uL (0.0-0.5); EOS % 4.3 % (0.0-3.0); GLOMERULAR FILTRATION RATE 27.9 (>39); GLUCOSE, FASTING 130 MG/DL (74-106); HEMATOCRIT 35.2 % (36.0-47.0); HEMOGLOBIN 11.5 g/dl (12.0-15.5); LYMPH # 1.8 10^3/uL (1.5-5.0); LYMPH % 22.9 % (24.0-44.0); MEAN CORPUSCULAR HEMOGLOBIN 32.3 pg (27.0-33.0); MEAN CORPUSCULAR HGB CONC 32.7 g/dl (32.0-36.5); MEAN CORPUSCULAR VOLUME 98.9 fl (80.0-96.0); MONO # 0.5 10^3/uL (0.0-0.8); MONO % 6.5 % (2.0-8.0); NEUTROPHILS % 65.3 % (36.0-66.0); PLATELET COUNT, AUTOMATED 176 10^3/uL (150-450); POTASSIUM SERUM 4.4 MMOL/L (3.5-5.1); RED BLOOD COUNT 3.56 10^6/uL (4.00-5.40); SODIUM LEVEL 141 MMOL/L (136-145); WHITE BLOOD COUNT 7.7 10^3/uL (4.0-10.0)
[2024-06-28 23:33] LABS: CPK CREATINE PHOSPHOKINASE 109 U/L (34-145); MB/CK RELATIVE INDEX 0.91 (< OR =4)
[2024-06-28 23:40] LABS: INR 1.07; PARTIAL THROMBOPLASTIN TIME 28.3 SECONDS (24.8-34.2); PROTHROMBIN TIME 13.6 SECONDS (12.5-14.5)
[2024-06-29] MEDS: NS 1,000 ML IV ONE (00:10)
[2024-06-29] MEDS ORDERED: ISOVUE-370 76% 100ML VIAL As Ordered ONE (00:21)
[2024-06-29 01:45] LABS: CK-MB VALUE MASS < 1.0 NG/ML (<3.6)
[2024-06-29 01:46] LABS: CPK CREATINE PHOSPHOKINASE 87 U/L (34-145); MB/CK RELATIVE INDEX 1.14 (< OR =4)
[2024-06-29 04:45] VITALS: BP 127/60; TEMP 97.4; O2SAT 96
== END 2024-06-29 05:08 | disposition home or self-care (01) ==
LOC: EDBD 21:35 → MERGE 21:35 → M ED 21:35
DX: S00.83XA Contusion of other part of head, initial encounter (principal); W06.XXXA Fall from bed, initial encounter; Y92.009 Unspecified place in unspecified non-institutional (private) residence as the place of occurrence of the external cause; Y93.89 Activity, other specified; Y99.9 Unspecified external cause status; I10 Essential (primary) hypertension; E78.5 Hyperlipidemia, unspecified; K21.9 Gastro-esophageal reflux disease without esophagitis; Z86.73 Personal history of transient ischemic attack (TIA), and cerebral infarction without residual deficits; Z87.440 Personal history of urinary (tract) infections; Z79.82 Long term (current) use of aspirin; Z79.899 Other long term (current) drug therapy; Z88.8 Allergy status to other drugs, medicaments and biological substances
CPT/HCPCS: 70450; 70486; 70496; 70498; 71045; 72125; 73030; 80048; 82550; 82553; 84484; 85025; 85610; 85730; 93005; 93041; 94760; 99291; Q9967

== ENCOUNTER → 2024-07-03 | Outpatient (CLI) | payer MEDICAID, OTHER | LOC: M RAD 14:47 | PROVIDERS: ATTEND Nurse Practitioner Family | DX: N17.9 Acute kidney failure, unspecified (principal); Q61.4 Renal dysplasia; N28.81 Hypertrophy of kidney ==

== ENCOUNTER → 2024-07-05 | Outpatient (REF) | payer OTHER, MEDICAID ==
[2024-07-05 12:31] LABS: BASO # 0.1 10^3/uL (0.0-0.2); BASO % 1.3 % (0.0-1.0); EOS # 0.3 10^3/uL (0.0-0.5); EOS % 4.4 % (0.0-3.0); HEMATOCRIT 38.5 % (36.0-47.0); HEMOGLOBIN 12.6 g/dl (12.0-15.5); LYMPH # 1.4 10^3/uL (1.5-5.0); LYMPH % 23.1 % (24.0-44.0); MEAN CORPUSCULAR HEMOGLOBIN 32.4 pg (27.0-33.0); MEAN CORPUSCULAR HGB CONC 32.7 g/dl (32.0-36.5); MONO # 0.5 10^3/uL (0.0-0.8); MONO % 8.1 % (2.0-8.0); NEUTROPHILS # 3.9 10^3/uL (1.5-8.5); NEUTROPHILS % 62.8 % (36.0-66.0); PLATELET COUNT, AUTOMATED 175 10^3/uL (150-450); RED BLOOD COUNT 3.89 10^6/uL (4.00-5.40); WHITE BLOOD COUNT 6.2 10^3/uL (4.0-10.0)
[2024-07-05 12:40] LABS: THYROID STIMULATING HORMONE 3.928 uIU/ML (0.55-4.78)
[2024-07-05 12:41] LABS: ALBUMIN 3.7 G/DL (3.2-5.2); BILIRUBIN,TOTAL 0.3 MG/DL (0.3-1.2); CALCIUM LEVEL 9.2 MG/DL (8.3-10.6); CHOLESTEROL RISK RATIO 3.66 (<5); CREATININE FOR GFR 1.7 MG/DL (0.55-1.30); FREE T4 0.84 NG/DL (0.89-1.76); GLOMERULAR FILTRATION RATE 31.5 (>39); HDL CHOLESTEROL 47.5 MG/DL (>40); LDL CHOLESTEROL 89.3 MG/DL (<100); NON-HDL-C 126.5 MG/DL; POTASSIUM SERUM 3.8 MMOL/L (3.5-5.1); TOTAL PROTEIN 6.7 G/DL (5.7-8.2)
[2024-07-05 12:48] LABS: HEMOGLOBIN A1c 6.6 % (4.0-6.0)
== END ==
LOC: M SFHCLERA 08:00
PROVIDERS: ATTEND Family Medicine
DX: E11.22 Type 2 diabetes mellitus with diabetic chronic kidney disease (principal); E66.01 Morbid (severe) obesity due to excess calories; E78.5 Hyperlipidemia, unspecified

== ENCOUNTER → 2024-07-11 | Outpatient (CLI) | payer OTHER, MEDICAID | LOC: M WHC 12:36 | PROVIDERS: ATTEND Family Medicine | DX: Z12.31 Encounter for screening mammogram for malignant neoplasm of breast (principal) ==

== ENCOUNTER → 2024-11-21 | Outpatient (REF) | payer OTHER, MEDICAID ==
[~2024-11-21] MED LIST changes: +GABA-1172 PO; -GABA-282 PO; -ROSU40TA63 PO; +ROSU40TA81 PO; -ROSU5TAB40 PO; +ROSU5TAB49 PO
== END ==
LOC: M LAB REF 17:04
PROVIDERS: ATTEND Nurse Practitioner Family
DX: N39.0 Urinary tract infection, site not specified (principal)

== ENCOUNTER → 2025-01-02 | Outpatient (CLI) | payer MEDICAID, OTHER ==
[2025-01-02 12:41] LABS: BASO # 0.1 10^3/uL (0.0-0.2); BASO % 1.2 % (0.0-1.0); EOS # 0.2 10^3/uL (0.0-0.5); HEMATOCRIT 39.3 % (36.0-47.0); HEMOGLOBIN 12.6 g/dl (12.0-15.5); LYMPH # 1.1 10^3/uL (1.5-5.0); LYMPH % 18.1 % (24.0-44.0); MEAN CORPUSCULAR HEMOGLOBIN 31.9 pg (27.0-33.0); MEAN CORPUSCULAR HGB CONC 32.1 g/dl (32.0-36.5); MEAN CORPUSCULAR VOLUME 99.5 fl (80.0-96.0); MONO # 0.4 10^3/uL (0.0-0.8); MONO % 6.7 % (2.0-8.0); NEUTROPHILS # 4.2 10^3/uL (1.5-8.5); NEUTROPHILS % 69.8 % (36.0-66.0); PLATELET COUNT, AUTOMATED 169 10^3/uL (150-450); RED BLOOD COUNT 3.95 10^6/uL (4.00-5.40)
[2025-01-02 13:06] LABS: ALBUMIN 3.8 G/DL (3.2-5.2); BILIRUBIN,TOTAL 0.3 MG/DL (0.3-1.2); CALCIUM LEVEL 9.2 MG/DL (8.3-10.6); CREATININE FOR GFR 1.79 MG/DL (0.55-1.30); GLOMERULAR FILTRATION RATE 29.6 (>39); POTASSIUM SERUM 3.8 MMOL/L (3.5-5.1)
== END ==
LOC: M LAB 12:08
PROVIDERS: ATTEND Internal Medicine Cardiovascular Disease
DX: N18.9 Chronic kidney disease, unspecified (principal); I12.9 Hypertensive chronic kidney disease with stage 1 through stage 4 chronic kidney disease, or unspecified chronic kidney disease

== ENCOUNTER 2025-03-14 15:27 | Emergency (ER) | payer OTHER ==
[~2025-03-14] VITALS: Ht 165.1 cm; Wt 110.9 kg
[2025-03-14 15:55] VITALS: BP 187/81
[2025-03-14] MEDS: NITROGLYCERIN 0.4 MG SUBL TABLET SL PRN (15:55)
[2025-03-14 15:56] LABS: BASO # 0.1 10^3/uL (0.0-0.2); BASO % 0.9 % (0.0-1.0); EOS # 0.4 10^3/uL (0.0-0.5); EOS % 4.9 % (0.0-3.0); HEMATOCRIT 34.7 % (36.0-47.0); HEMOGLOBIN 11.2 g/dl (12.0-15.5); LYMPH # 1.2 10^3/uL (1.5-5.0); MEAN CORPUSCULAR HEMOGLOBIN 31.9 pg (27.0-33.0); MEAN CORPUSCULAR HGB CONC 32.3 g/dl (32.0-36.5); MEAN CORPUSCULAR VOLUME 98.9 fl (80.0-96.0); MONO # 0.6 10^3/uL (0.0-0.8); MONO % 7.3 % (2.0-8.0); NEUTROPHILS # 5.9 10^3/uL (1.5-8.5); NEUTROPHILS % 71.7 % (36.0-66.0); PLATELET COUNT, AUTOMATED 153 10^3/uL (150-450); RED BLOOD COUNT 3.51 10^6/uL (4.00-5.40); WHITE BLOOD COUNT 8.2 10^3/uL (4.0-10.0)
[2025-03-14 16:26] LABS: CK-MB VALUE MASS < 1.0 NG/ML (<3.6)
[2025-03-14 16:28] LABS: BLOOD UREA NITROGEN 26 MG/DL (9-23); CALCIUM LEVEL 8.7 MG/DL (8.3-10.6); CARBON DIOXIDE LEVEL 24 MMOL/L (20-31); CHLORIDE LEVEL 106 MMOL/L (98-107); CPK CREATINE PHOSPHOKINASE 65 U/L (34-145); CREATININE FOR GFR 2.16 MG/DL (0.55-1.30); GLOMERULAR FILTRATION RATE 23.8 (>39); GLUCOSE, FASTING 128 MG/DL (74-106); MB/CK RELATIVE INDEX 1.53 (< OR =4); POTASSIUM SERUM 3.8 MMOL/L (3.5-5.1); SODIUM LEVEL 139 MMOL/L (136-145)
[2025-03-14 16:29] LABS: PROTHROMBIN TIME 13.5 SECONDS (12.5-14.5)
[2025-03-14 17:36] LABS: CK-MB VALUE MASS < 1.0 NG/ML (<3.6); CPK CREATINE PHOSPHOKINASE 151 U/L (34-145); MB/CK RELATIVE INDEX 0.66 (< OR =4)
[2025-03-14] MEDS ORDERED: HEPARIN SOD 5000 UNITS/ML 1 ML VIAL/SYRINGE IV PRN (18:05)
[2025-03-14] MEDS: HEPARIN SOD 5000 UNITS/ML 1 ML VIAL/SYRINGE IV ONE (18:27)
[2025-03-14] MEDS: HEPARIN DRIP 25,000 UNITS in IV 1 EA IV SCH (18:29)
[2025-03-14] MEDS ORDERED: MORPHINE 2 MG/ML 1 ML VIAL IV PRN (20:00)
[2025-03-14] MEDS ORDERED: NITROGLYCERIN 0.4 MG SUBL TABLET SL PRN (20:00)
[2025-03-14 20:04] LABS: CK-MB VALUE MASS < 1.0 NG/ML (<3.6)
[2025-03-14 20:05] LABS: CPK CREATINE PHOSPHOKINASE 57 U/L (34-145); MB/CK RELATIVE INDEX 1.75 (< OR =4)
[2025-03-14] MEDS: MORPHINE 2 MG/ML 1 ML VIAL IV PRN (20:55)
[2025-03-14] MEDS: LEVALBUTEROL 1.25 MG 0.5ML CONCENTRATE NEB INH SCH (21:24)
[2025-03-14] MEDS: CLOPIDOGREL 300 MG TAB PO ONE (21:31)
[2025-03-14] MEDS: ASPIRIN 81 MG CHEWABLE TABLET PO ONE (21:31)
[2025-03-14] MEDS: NS (Normal Saline) 0.9% 1,000 ML IV SCH (21:32)
[2025-03-14] MEDS ORDERED: RANO500T2 PO (21:34)
[2025-03-14] MEDS ORDERED: ACET-897 PO (21:35)
[2025-03-14] MEDS ORDERED: POTA-151 PO (21:41)
[2025-03-14] MEDS ORDERED: HYDR50TA46 PO (21:46)
[2025-03-14] MEDS ORDERED: NITR0.4S14 SL (21:46)
[2025-03-14] MEDS ORDERED: CALC1CAP31 PO (21:46)
[2025-03-14] MEDS ORDERED: HOME MED LIST COMPLETE! XX SCH (21:50)
[2025-03-14] MEDS ORDERED: MED REC COMMENT (21:50)
[2025-03-14] MEDS: AZITHROMYCIN 250 MG TABLET PO SCH (23:25)
[2025-03-15 06:35] VITALS: BP 182/79; TEMP 97.4; O2SAT 94
[2025-03-15] MEDS ORDERED: ATORVASTATIN 20 MG TAB PO SCH (09:00)
[2025-03-15] MEDS ORDERED: atenoloL 50 MG TAB PO SCH (09:00)
[2025-03-15] MEDS ORDERED: CLOPIDOGREL 75 MG TAB PO SCH (09:00)
[2025-03-15] MEDS ORDERED: PANTOPRAZOLE 40MG TAB PO SCH (09:00)
[2025-03-15] MEDS ORDERED: LISINOPRIL 2.5 MG TAB PO SCH (09:00)
[2025-03-15] MEDS ORDERED: ASPIRIN ENTERIC 325 MG TAB PO SCH (09:00)
[2025-03-15] MEDS ORDERED: dilTIAZem 120 MG **CD** CAPSULE PO SCH (09:00)
== END 2025-03-15 08:26 | disposition short-term general hospital (02) ==
LOC: EDBD 15:27 → M ED 15:27
DX: I20.0 Unstable angina (principal); E11.9 Type 2 diabetes mellitus without complications; E78.5 Hyperlipidemia, unspecified; K21.9 Gastro-esophageal reflux disease without esophagitis; J44.9 Chronic obstructive pulmonary disease, unspecified; I12.9 Hypertensive chronic kidney disease with stage 1 through stage 4 chronic kidney disease, or unspecified chronic kidney disease; F41.9 Anxiety disorder, unspecified; F32.A Depression, unspecified; Z95.5 Presence of coronary angioplasty implant and graft; Z87.891 Personal history of nicotine dependence; Z79.82 Long term (current) use of aspirin; Z79.899 Other long term (current) drug therapy; Z88.1 Allergy status to other antibiotic agents; Z88.8 Allergy status to other drugs, medicaments and biological substances

== ENCOUNTER → 2025-07-25 | Outpatient (REF) | payer OTHER, MEDICAID ==
[~2025-07-25] MED LIST changes: +ACET-897 PO; +CALC1CAP31 PO; +HYDR50TA46 PO; +MED REC COMMENT; +NITR0.4S14 SL; +POTA-151 PO; +RANO500T2 PO
[2025-07-25 19:16] LABS: BASO # 0.1 10^3/uL (0.0-0.2); BASO % 1.3 % (0.0-1.0); EOS # 0.4 10^3/uL (0.0-0.5); EOS % 7.0 % (0.0-3.0); LYMPH # 1.2 10^3/uL (1.5-5.0); LYMPH % 22.0 % (24.0-44.0); MONO # 0.5 10^3/uL (0.0-0.8); MONO % 9.5 % (2.0-8.0); NEUTROPHILS # 3.2 10^3/uL (1.5-8.5); NEUTROPHILS % 60.0 % (36.0-66.0); PLATELET COUNT, AUTOMATED 171 10^3/uL (150-450)
[2025-07-25 19:26] LABS: ALT/SGPT 30.0 U/L (7.0-40); AST/SGOT 44.0 U/L (<34); CALCIUM LEVEL 9.8 MG/DL (8.3-10.6); CARBON DIOXIDE LEVEL 27.0 MMOL/L (20-31); CHLORIDE LEVEL 103.0 MMOL/L (98-107); CHOLESTEROL LEVEL 161.0 MG/DL (<200); CHOLESTEROL RISK RATIO 3.26 (<5); CREATININE FOR GFR 2.36 MG/DL (0.55-1.30); GLOMERULAR FILTRATION RATE 21.2 (>39); LDL CHOLESTEROL 77.7 MG/DL (<100); NON-HDL-C 111.7 MG/DL; POTASSIUM SERUM 3.8 MMOL/L (3.5-5.1); SODIUM LEVEL 142.0 MMOL/L (136-145); TRIGLYCERIDES LEVEL 170.0 MG/DL (<150)
[2025-07-25 19:41] LABS: ESTIMATED AVERAGE GLUCOSE 117.0 MG/DL (60-110)
== END ==
LOC: M SFHCLERA 11:48
PROVIDERS: ATTEND Family Medicine
DX: N18.4 Chronic kidney disease, stage 4 (severe) (principal); E11.9 Type 2 diabetes mellitus without complications; I10 Essential (primary) hypertension; E78.5 Hyperlipidemia, unspecified

== ENCOUNTER 2025-08-09 22:56 | Inpatient (IN) | payer OTHER, MEDICAID ==
[~2025-08-09] VITALS: Ht 165.1 cm; Wt 108.2 kg
[2025-08-10 00:43] LABS: BASO # 0.1 10^3/uL (0.0-0.2); BASO % 1.0 % (0.0-1.0); EOS # 0.5 10^3/uL (0.0-0.5); EOS % 10.4 % (0.0-3.0); LYMPH # 1.1 10^3/uL (1.5-5.0); LYMPH % 22.8 % (24.0-44.0); MONO # 0.5 10^3/uL (0.0-0.8); MONO % 10.2 % (2.0-8.0); NEUTROPHILS # 2.7 10^3/uL (1.5-8.5); NEUTROPHILS % 55.2 % (36.0-66.0); PLATELET COUNT, AUTOMATED 135 10^3/uL (150-450)
[2025-08-10 00:58] LABS: CK-MB VALUE MASS 1.9 NG/ML (<3.6)
[2025-08-10 00:59] LABS: ALT/SGPT 28.0 U/L (7.0-40); AST/SGOT 29.0 U/L (<34); CALCIUM LEVEL 9.0 MG/DL (8.3-10.6); CARBON DIOXIDE LEVEL 25.0 MMOL/L (20-31); CHLORIDE LEVEL 104.0 MMOL/L (98-107); CREATININE FOR GFR 2.87 MG/DL (0.55-1.30); GLOMERULAR FILTRATION RATE 16.8 (>39); POTASSIUM SERUM 3.5 MMOL/L (3.5-5.1); SODIUM LEVEL 138.0 MMOL/L (136-145)
[2025-08-10 01:09] LABS: CPK CREATINE PHOSPHOKINASE 243.0 U/L (34-145); MB/CK RELATIVE INDEX 0.78 (< OR =4)
[2025-08-10] MEDS: MORPHINE 4 MG/ML 1 ML VIAL IV PRN (01:14)
[2025-08-10 01:31] LABS: INR 0.97
[2025-08-10] MEDS: NS (Normal Saline) 0.9% 1,000 ML IV SCH (03:25)
[2025-08-10 06:53] LABS: APPEARANCE, URINE CLOUDY (CLEAR); BACTERIA, URINE AUTO 2+ (NEGATIVE); BILIRUBIN, URINE AUTO NEGATIVE (NEGATIVE); BLOOD, URINE BLOOD NEGATIVE (NEGATIVE); GLUCOSE, URINE (UA) AUTO NEGATIVE (NEGATIVE); KETONE, URINE AUTO NEGATIVE (NEGATIVE); LEUKOCYTE ESTERASE, URINE AUTO NEGATIVE (NEGATIVE); MUCUS, URINE SMALL (NEGATIVE); NITRITE, URINE AUTO NEGATIVE (NEGATIVE); PROTEIN, URINE AUTO NEGATIVE (NEGATIVE); RBC, URINE AUTO 0 /HPF (0-3); SPECIFIC GRAVITY URINE AUTO 1.005 (1.002-1.035); SQUAMOUS EPITHELIAL CELL UR AU 1 /HPF (0-6); UROBILINOGEN, URINE AUTO 0.2 mg/dL (0.0-2.0); WBC, URINE AUTO 0 /HPF (0-3)
[2025-08-10 06:54] LABS: PLATELET COUNT, AUTOMATED 148 10^3/uL (150-450)
[2025-08-10] MEDS ORDERED: IPRATROPIUM 0.5 MG/ALBUTEROL 2.5 MG INH SOL UD 3 ML NEB PRN (15:00)
[2025-08-10] MEDS ORDERED: MIRALAX *UNIT DOSE* 17 GM PACKET PO PRN (15:10)
[2025-08-10] MEDS ORDERED: traMADol 50 MG TAB PO PRN (15:10)
[2025-08-10] MEDS: GABAPENTIN 300 MG CAP PO SCH (16:31)
[2025-08-10] MEDS: ACETAMINOPHEN 500 MG TAB PO SCH (16:31)
[2025-08-10 16:48] VITALS: BP 121/55; TEMP 97.5; O2SAT 95
[2025-08-10] MEDS ORDERED: DILT240C28 PO (17:02)
[2025-08-10] MEDS ORDERED: FURO20TA2 PO (17:04)
[2025-08-10] MEDS ORDERED: VENTAER PO (17:11)
[2025-08-10] MEDS ORDERED: AMLO1TAB24 PO (17:13)
[2025-08-10] MEDS ORDERED: SPIR12.9 INH (17:13)
[2025-08-10] MEDS ORDERED: CARV6.25 PO (17:14)
[2025-08-10] MEDS ORDERED: HOME MED LIST COMPLETE! XX SCH (17:15)
[2025-08-10 20:32] VITALS: BP 131/65; TEMP 97.3; O2SAT 94
[2025-08-10] MEDS: SYMBICORT 160/4.5MCG INHALER 6GM INH SCH (20:37)
[2025-08-10] MEDS: ALBUTEROL SULFATE 2.5 MG/0.5 ML INH CONCENTRATE NEB SOLN NEB SCH (20:37)
[2025-08-10] MEDS: HEPARIN SOD 5000 UNITS/ML 1 ML VIAL/SYRINGE SC SCH (21:11)
[2025-08-10] MEDS: DOCUSATE SODIUM 100 MG CAPSULE PO SCH (21:11)
[2025-08-11 06:00] VITALS: BP 101/55; TEMP 97.5; O2SAT 97
[2025-08-11 08:56] LABS: BASO # 0.0 10^3/uL (0.0-0.2); BASO % 0.6 % (0.0-1.0); EOS # 0.3 10^3/uL (0.0-0.5); EOS % 5.9 % (0.0-3.0); LYMPH # 0.8 10^3/uL (1.5-5.0); LYMPH % 16.6 % (24.0-44.0); MONO # 0.4 10^3/uL (0.0-0.8); MONO % 7.3 % (2.0-8.0); NEUTROPHILS # 3.5 10^3/uL (1.5-8.5); NEUTROPHILS % 69.4 % (36.0-66.0); PLATELET COUNT, AUTOMATED 133 10^3/uL (150-450)
[2025-08-11] MEDS ORDERED: dexAMETHasone 4 MG/ML 1 ML VIAL IV SCH (09:00)
[2025-08-11 09:32] LABS: CALCIUM LEVEL 9.2 MG/DL (8.3-10.6); CARBON DIOXIDE LEVEL 25.0 MMOL/L (20-31); CHLORIDE LEVEL 107.0 MMOL/L (98-107); CREATININE FOR GFR 2.17 MG/DL (0.55-1.30); GLOMERULAR FILTRATION RATE 23.5 (>39); POTASSIUM SERUM 3.6 MMOL/L (3.5-5.1); SODIUM LEVEL 141.0 MMOL/L (136-145)
[2025-08-11 13:17] VITALS: BP 101/46; TEMP 97.5; O2SAT 95
[2025-08-11] MEDS: PNEUMOC 21-VAL CONJ-DIP CRM/PF 0.5 ML SYRINGE IM.IMMUN ONE (13:23)
[2025-08-11 14:40] VITALS: O2SAT 97
[2025-08-11 21:00] VITALS: BP 108/57; TEMP 98.4; O2SAT 97
[2025-08-11] MEDS ORDERED: NYSTATIN 100,000 UNITS/GM TOPICAL PWD 15 GM TOP PRN (23:10)
[2025-08-12 06:00] VITALS: BP 129/48; TEMP 97.3; O2SAT 98
[2025-08-12 06:35] LABS: BASO # 0.1 10^3/uL (0.0-0.2); BASO % 1.2 % (0.0-1.0); EOS # 0.3 10^3/uL (0.0-0.5); EOS % 7.8 % (0.0-3.0); LYMPH # 1.2 10^3/uL (1.5-5.0); LYMPH % 28.0 % (24.0-44.0); MONO # 0.4 10^3/uL (0.0-0.8); MONO % 8.5 % (2.0-8.0); NEUTROPHILS # 2.3 10^3/uL (1.5-8.5); NEUTROPHILS % 54.3 % (36.0-66.0); PLATELET COUNT, AUTOMATED 134 10^3/uL (150-450)
[2025-08-12 07:11] LABS: CALCIUM LEVEL 9.0 MG/DL (8.3-10.6); CARBON DIOXIDE LEVEL 24.0 MMOL/L (20-31); CHLORIDE LEVEL 109.0 MMOL/L (98-107); CREATININE FOR GFR 1.91 MG/DL (0.55-1.30); GLOMERULAR FILTRATION RATE 27.4 (>39); POTASSIUM SERUM 3.5 MMOL/L (3.5-5.1); SODIUM LEVEL 144.0 MMOL/L (136-145)
[2025-08-12] MEDS: TIOTROPIUM BROM 2.5MCG/ACTUATION 4GM INH INH SCH (08:00)
[2025-08-12] MEDS ORDERED: ALBUTEROL SULFATE 2.5 MG/0.5 ML INH CONCENTRATE NEB SOLN NEB PRN (08:20)
[2025-08-12 08:55] VITALS: O2SAT 97
[2025-08-12] MEDS: busPIRone 5 MG TAB PO SCH (10:26)
[2025-08-12] MEDS: ISOSORBIDE MONONITRATE 60 MG XR TAB PO SCH (10:28)
[2025-08-12] MEDS: CLOPIDOGREL 75 MG TAB PO SCH (10:28)
[2025-08-12] MEDS: FUROSEMIDE 20 MG TAB PO SCH (10:29)
[2025-08-12] MEDS: ROSUVASTATIN 10 MG TAB PO SCH (10:29)
[2025-08-12] MEDS: RANOLAZINE 500MG ER TAB PO SCH (10:30)
[2025-08-12] MEDS: CALCITRIOL 0.25 MCG CAP (S0169) PO SCH (10:30)
[2025-08-12] MEDS: TOPIRAMATE 25 MG TAB PO SCH (10:30)
[2025-08-12] MEDS: ASPIRIN 81 MG ENTERIC TABLET PO SCH (10:30)
[2025-08-12 12:00] VITALS: BP 119/74; TEMP 97.7; O2SAT 98
[2025-08-12 21:08] VITALS: BP 121/71; TEMP 97.7; O2SAT 95
[2025-08-12] MEDS: SERTRALINE 100 MG TAB PO SCH (21:14)
[2025-08-13 06:17] VITALS: BP 140/70; TEMP 97.3; O2SAT 97
[2025-08-13 08:01] VITALS: O2SAT 96
[2025-08-13 08:04] LABS: BASO # 0.0 10^3/uL (0.0-0.2); BASO % 0.7 % (0.0-1.0); EOS # 0.4 10^3/uL (0.0-0.5); EOS % 8.4 % (0.0-3.0); LYMPH # 1.2 10^3/uL (1.5-5.0); LYMPH % 29.4 % (24.0-44.0); MONO # 0.3 10^3/uL (0.0-0.8); MONO % 7.9 % (2.0-8.0); NEUTROPHILS # 2.2 10^3/uL (1.5-8.5); NEUTROPHILS % 53.4 % (36.0-66.0); PLATELET COUNT, AUTOMATED 138 10^3/uL (150-450)
[2025-08-13 08:32] LABS: CALCIUM LEVEL 9.1 MG/DL (8.3-10.6); CARBON DIOXIDE LEVEL 24.0 MMOL/L (20-31); CHLORIDE LEVEL 110.0 MMOL/L (98-107); CREATININE FOR GFR 1.74 MG/DL (0.55-1.30); GLOMERULAR FILTRATION RATE 30.6 (>39); POTASSIUM SERUM 3.5 MMOL/L (3.5-5.1); SODIUM LEVEL 145.0 MMOL/L (136-145)
[2025-08-13 08:52] VITALS: BP 149/70
== END 2025-08-13 13:50 | disposition home or self-care (01) | DRG 191 ==
LOC: M ED 22:56 → EEVIPCON 08-10 15:07 → M ED INP 08-10 15:07 → M MS5PR 08-10 16:00
PROVIDERS: ADMIT Internal Medicine Nephrology; ATTEND General Practice
DX: J44.1 Chronic obstructive pulmonary disease with (acute) exacerbation (principal); N18.4 Chronic kidney disease, stage 4 (severe); N17.9 Acute kidney failure, unspecified; E66.01 Morbid (severe) obesity due to excess calories; I25.10 Atherosclerotic heart disease of native coronary artery without angina pectoris; I12.9 Hypertensive chronic kidney disease with stage 1 through stage 4 chronic kidney disease, or unspecified chronic kidney disease; E78.5 Hyperlipidemia, unspecified; R26.89 Other abnormalities of gait and mobility; W01.0XXA Fall on same level from slipping, tripping and stumbling without subsequent striking against object, initial encounter; Y92.009 Unspecified place in unspecified non-institutional (private) residence as the place of occurrence of the external cause; E11.22 Type 2 diabetes mellitus with diabetic chronic kidney disease; K21.9 Gastro-esophageal reflux disease without esophagitis; F32.A Depression, unspecified; G40.909 Epilepsy, unspecified, not intractable, without status epilepticus; R91.1 Solitary pulmonary nodule; D64.9 Anemia, unspecified; I65.23 Occlusion and stenosis of bilateral carotid arteries; F41.1 Generalized anxiety disorder; E03.9 Hypothyroidism, unspecified; M17.0 Bilateral primary osteoarthritis of knee; M54.9 Dorsalgia, unspecified; R29.6 Repeated falls; G89.29 Other chronic pain; M48.061 Spinal stenosis, lumbar region without neurogenic claudication; S70.01XA Contusion of right hip, initial encounter; L89.152 Pressure ulcer of sacral region, stage 2; Z87.891 Personal history of nicotine dependence; Z68.39 Body mass index [BMI] 39.0-39.9, adult; Z95.5 Presence of coronary angioplasty implant and graft; Z90.79 Acquired absence of other genital organ(s); Z79.82 Long term (current) use of aspirin; Z79.899 Other long term (current) drug therapy; Z88.8 Allergy status to other drugs, medicaments and biological substances

== ENCOUNTER → 2025-09-06 | Outpatient (CLI) | payer OTHER, MEDICAID ==
[~2025-09-06] MED LIST changes: +AMLO1TAB24 PO; +CARV6.25 PO; +DILT240C28 PO; +SPIR12.9 INH; +VENTAER PO
== END ==
LOC: M SOG 07:22
PROVIDERS: ATTEND Physician Assistant
DX: M25.532 Pain in left wrist (principal); Z53.9 Procedure and treatment not carried out, unspecified reason

== ENCOUNTER → 2025-09-20 | Outpatient (CLI) | payer OTHER, MEDICAID | LOC: M WHC 13:11 | PROVIDERS: ATTEND Family Medicine | DX: M25.532 Pain in left wrist (principal) ==

== ENCOUNTER → 2025-09-27 | Outpatient (REF) | payer OTHER, MEDICAID ==
[2025-09-27 17:38] LABS: APPEARANCE, URINE CLOUDY (CLEAR); BACTERIA, URINE AUTO 1+ (NEGATIVE); BILIRUBIN, URINE AUTO NEGATIVE (NEGATIVE); BLOOD, URINE BLOOD 1+ (NEGATIVE); GLUCOSE, URINE (UA) AUTO NEGATIVE (NEGATIVE); KETONE, URINE AUTO NEGATIVE (NEGATIVE); LEUKOCYTE ESTERASE, URINE AUTO 3+ (NEGATIVE); NITRITE, URINE AUTO NEGATIVE (NEGATIVE); PROTEIN, URINE AUTO 1+ mg/dL (NEGATIVE); RBC, URINE AUTO 5 /HPF (0-3); SPECIFIC GRAVITY URINE AUTO 1.008 (1.002-1.035); SQUAMOUS EPITHELIAL CELL UR AU 2 /HPF (0-6); UROBILINOGEN, URINE AUTO 0.2 mg/dL (0.0-2.0); WBC, URINE AUTO TNTC /HPF (0-3)
== END ==
LOC: M SHH 17:16
PROVIDERS: ATTEND Family Medicine
DX: R30.0 Dysuria (principal)

== ENCOUNTER 2025-10-16 12:41 | Inpatient (IN) | payer OTHER, MEDICAID ==
[~2025-10-16] VITALS: Ht 172.7 cm; Wt 109.1 kg
[2025-10-16] MEDS: NS (Normal Saline) 0.9% 1,000 ML IV SCH (13:23)
[2025-10-16 13:36] LABS: BASO # 0.0 10^3/uL (0.0-0.2); BASO % 0.5 % (0.0-1.0); EOS # 0.2 10^3/uL (0.0-0.5); EOS % 4.0 % (0.0-3.0); LYMPH # 1.1 10^3/uL (1.5-5.0); LYMPH % 18.3 % (24.0-44.0); MONO # 0.3 10^3/uL (0.0-0.8); MONO % 5.0 % (2.0-8.0); NEUTROPHILS # 4.3 10^3/uL (1.5-8.5); NEUTROPHILS % 71.9 % (36.0-66.0); PLATELET COUNT, AUTOMATED 194 10^3/uL (150-450)
[2025-10-16] MEDS: ACETAMINOPHEN 500 MG TAB PO ONE (13:37)
[2025-10-16 13:58] LABS: ALT/SGPT 82.0 U/L (7.0-40); AST/SGOT 275.0 U/L (<34)
[2025-10-16] MEDS ORDERED: HOME MED LIST COMPLETE! XX SCH (14:05)
[2025-10-16 14:25] LABS: CALCIUM LEVEL 9.4 MG/DL (8.3-10.6); CARBON DIOXIDE LEVEL 25.0 MMOL/L (20-31); CHLORIDE LEVEL 105.0 MMOL/L (98-107); CREATININE FOR GFR 1.35 MG/DL (0.55-1.30); GLOMERULAR FILTRATION RATE 41.5 (>39); POTASSIUM SERUM 4.6 MMOL/L (3.5-5.1); SODIUM LEVEL 143.0 MMOL/L (136-145)
[2025-10-16] MEDS ORDERED: PILL CUTTER 1 EACH XX PRN (19:50)
[2025-10-16] MEDS: busPIRone 5 MG TAB PO SCH (21:05)
[2025-10-16] MEDS: SERTRALINE 100 MG TAB PO SCH (21:05)
[2025-10-16] MEDS: GABAPENTIN 300 MG CAP PO SCH (21:05)
[2025-10-16] MEDS: RANOLAZINE 500MG ER TAB PO SCH (21:19)
[2025-10-17 00:05] VITALS: BP 161/72; TEMP 98.3; O2SAT 97
[2025-10-17 06:50] VITALS: BP 179/76; TEMP 98.6; O2SAT 98
[2025-10-17] MEDS: ACETAMINOPHEN 325 MG TAB PO PRN (07:42)
[2025-10-17] MEDS: TIOTROPIUM BROM 2.5MCG/ACTUATION 4GM INH INH SCH (08:32)
[2025-10-17] MEDS: SYMBICORT 160/4.5MCG INHALER 6GM INH SCH (08:33)
[2025-10-17] MEDS ORDERED: LOSARTAN 50 MG TABLET PO SCH (09:00)
[2025-10-17] MEDS ORDERED: POTASSIUM CHLORIDE 10MEQ SR TABLET PO SCH (09:00)
[2025-10-17] MEDS: ONDANSETRON 4MG/2ML VIAL IV PRN (09:09)
[2025-10-17] MEDS: PANTOPRAZOLE 40MG VIAL IV ONE (09:09)
[2025-10-17] MEDS: FAMOTIDINE 20 MG TAB PO SCH (11:48)
[2025-10-17] MEDS: ASPIRIN 81 MG ENTERIC TABLET PO SCH (11:48)
[2025-10-17] MEDS: ROSUVASTATIN 10 MG TAB PO SCH (11:49)
[2025-10-17] MEDS: FUROSEMIDE 40 MG TAB PO SCH (11:50)
[2025-10-17] MEDS: LOSARTAN 25 MG TAB PO SCH (11:50)
[2025-10-17] MEDS: CLOPIDOGREL 75 MG TAB PO SCH (11:50)
[2025-10-17] MEDS: TOPIRAMATE 25 MG TAB PO SCH (11:51)
[2025-10-17] MEDS: amLODIPine 5 MG TAB PO SCH (11:51)
[2025-10-17 14:00] VITALS: BP 137/64; TEMP 98.1; O2SAT 96
[2025-10-17] MEDS: ISOSORBIDE MONONITRATE 60 MG XR TAB PO SCH (14:50)
[2025-10-17 20:22] VITALS: BP 110/55; TEMP 98.1; O2SAT 95
[2025-10-17] MEDS: HEPARIN SOD 5000 UNITS/ML 1 ML VIAL/SYRINGE SQ SCH (20:49)
[2025-10-17] MEDS: PANTOPRAZOLE 40MG TAB PO SCH (20:49)
[2025-10-17] MEDS: traZODone 50 MG TAB PO PRN (20:49)
[2025-10-18 04:56] VITALS: BP 112/54; TEMP 97.7; O2SAT 93
[2025-10-18 07:19] LABS: PLATELET COUNT, AUTOMATED 171 10^3/uL (150-450)
[2025-10-18 07:52] LABS: CALCIUM LEVEL 9.0 MG/DL (8.3-10.6); CARBON DIOXIDE LEVEL 26.0 MMOL/L (20-31); CHLORIDE LEVEL 106.0 MMOL/L (98-107); CREATININE FOR GFR 1.43 MG/DL (0.55-1.30); GLOMERULAR FILTRATION RATE 38.7 (>39); POTASSIUM SERUM 3.4 MMOL/L (3.5-5.1); SODIUM LEVEL 142.0 MMOL/L (136-145)
[2025-10-18] MEDS: POTASSIUM CHLORIDE 10MEQ SR TABLET PO SCH (12:13)
[2025-10-18 14:00] VITALS: BP 108/53; TEMP 98.2; O2SAT 92
[2025-10-18 19:59] VITALS: BP 106/54; TEMP 98.2; O2SAT 93
[2025-10-19 04:49] VITALS: BP 128/60; TEMP 97.7; O2SAT 96
[2025-10-19] MEDS: traMADol 50 MG TAB PO PRN (15:37)
[2025-10-19 17:41] LABS: KETONE, URINE AUTO RFX NEGATIVE (NEGATIVE); NITRITE, URINE AUTO RFX NEGATIVE (NEGATIVE); RBC, URINE AUTO RFX 6 /HPF (0-3); SQUAM EPITHELIAL CELL UR AURFX 1 /HPF (0-6)
[2025-10-19 17:42] LABS: LEUKOCYTE ESTERASE UR AUTO RFX 2+ (NEGATIVE); WBC, URINE AUTO RFX TNTC /HPF (0-3)
[2025-10-19] MEDS ORDERED: PHENAZOPYRIDINE 100 MG TAB PO SCH (18:10)
[2025-10-19 19:52] VITALS: BP 116/55; TEMP 97.7; O2SAT 97
[2025-10-20] VITALS (11 sets, daily range): BP systolic 118–195; BP diastolic 57–88; TEMP 98.1–102.5; O2SAT 88–99
[2025-10-20] MEDS: IPRATROPIUM 0.5 MG/ALBUTEROL 2.5 MG INH SOL UD 3 ML NEB PRN (20:17)
[2025-10-20 22:41] LABS: VENOUS BASE EXCESS -2.9 (-2.0-2.0); VENOUS HCO3 23.7 MMOL/L (23.0-27.0); VENOUS O2 SATURATION 81.3 % (60.0-80.0); VENOUS PARTIAL PRESSURE CO2 48.9 mmHg (38.0-50.0); VENOUS PARTIAL PRESSURE O2 48.1 mmHg (30.0-50.0); VENOUS PH 7.304 UNITS (7.330-7.430); VENOUS STANDARD HCO3 21.7 MMOL/L; VENOUS TOTAL CO2 25.2 MMOL/L (24.0-28.0)
[2025-10-20 23:10] LABS: INR 1.0
[2025-10-20] MEDS: PIPERACILLIN/TAZOBACTAM SOD 4.5 GM in DEXTROSE 5% (D5W) ADV/MINI-BAG 50 ML IV SCH (23:12)
[2025-10-20] MEDS: ACETAMINOPHEN *IV* 1,000 MG in IV 1 EA IV PRN (23:54)
[2025-10-21] VITALS (12 sets, daily range): BP systolic 101–174; BP diastolic 51–77; TEMP 98.9–103.4; O2SAT 92–96
[2025-10-21] MEDS: hydrALAZINE 20 MG/ML 1 ML VIAL IV PRN (00:12)
[2025-10-21] MEDS ORDERED: PIPERACILLIN/TAZOBACTAM SOD 3.375 GM in DEXTROSE 5% (D5W) ADV/MINI-BAG 50 ML IV SCH (04:00)
[2025-10-21 10:14] LABS: PLATELET COUNT, AUTOMATED 177 10^3/uL (150-450)
[2025-10-21 10:49] LABS: ALT/SGPT 51.0 U/L (7.0-40); AST/SGOT 50.0 U/L (<34); CALCIUM LEVEL 9.0 MG/DL (8.3-10.6); CARBON DIOXIDE LEVEL 26.0 MMOL/L (20-31); CHLORIDE LEVEL 103.0 MMOL/L (98-107); CREATININE FOR GFR 1.28 MG/DL (0.55-1.30); GLOMERULAR FILTRATION RATE 44.2 (>39); MAGNESIUM LEVEL 1.9 MG/DL (1.8-2.4); POTASSIUM SERUM 4.0 MMOL/L (3.5-5.1); SODIUM LEVEL 137.0 MMOL/L (136-145)
[2025-10-21] MEDS: NS (Normal Saline) 0.9% 1,000 ML IV ONE (10:50)
[2025-10-21] MEDS: ALBUTEROL SULFATE 2.5 MG/0.5 ML INH CONCENTRATE NEB SOLN NEB SCH (14:05)
[2025-10-22] VITALS (11 sets, daily range): BP systolic 107–144; BP diastolic 54–66; TEMP 99.2–102; O2SAT 93–100
[2025-10-22 05:24] LABS: PLATELET COUNT, AUTOMATED 162 10^3/uL (150-450)
[2025-10-22 05:47] LABS: CALCIUM LEVEL 8.8 MG/DL (8.3-10.6); CARBON DIOXIDE LEVEL 23.0 MMOL/L (20-31); CHLORIDE LEVEL 104.0 MMOL/L (98-107); CREATININE FOR GFR 1.21 MG/DL (0.55-1.30); GLOMERULAR FILTRATION RATE 47.3 (>39); POTASSIUM SERUM 3.5 MMOL/L (3.5-5.1); SODIUM LEVEL 137.0 MMOL/L (136-145)
[2025-10-22 06:17] LABS: ATYPICAL LYMPH 1 % (0-5); LYMPHOCYTES 8 % (16-44); MONOCYTES 2 % (0-5); NEUTROPHILS 77 % (28-66)
[2025-10-22 06:18] LABS: PLATELET ESTIMATE NORMAL (NORMAL)
[2025-10-22] MEDS ORDERED: VANCOMYCIN HCL 1,000 MG in IV FLUID PLACE HOLDER 1 EA IV SCH (13:40)
[2025-10-22] MEDS ORDERED: VANCOMYCIN HCL 2,000 MG, VIAL MATE ADAPTER 1 EACH in NS 500 ML IV SCH (16:00)
[2025-10-22] MEDS ORDERED: VANCOMYCIN HCL 1,500 MG, VIAL MATE ADAPTER 1 EACH in NS 500 ML IV ONE (16:00)
[2025-10-22] MEDS: VANCOMYCIN HCL 2,000 MG, VIAL MATE ADAPTER 1 EACH in NS 500 ML IV ONE (17:10)
[2025-10-23 06:37] LABS: BASO # 0.0 10^3/uL (0.0-0.2); BASO % 0.2 % (0.0-1.0); EOS # 0.1 10^3/uL (0.0-0.5); EOS % 0.5 % (0.0-3.0); LYMPH # 0.7 10^3/uL (1.5-5.0); LYMPH % 4.6 % (24.0-44.0); MONO # 0.7 10^3/uL (0.0-0.8); MONO % 5.1 % (2.0-8.0); NEUTROPHILS # 13.0 10^3/uL (1.5-8.5); NEUTROPHILS % 88.6 % (36.0-66.0); PLATELET COUNT, AUTOMATED 168 10^3/uL (150-450)
[2025-10-23 06:44] VITALS: BP 164/72; TEMP 98.4; O2SAT 94
[2025-10-23 07:11] LABS: CALCIUM LEVEL 8.6 MG/DL (8.3-10.6); CARBON DIOXIDE LEVEL 22.0 MMOL/L (20-31); CHLORIDE LEVEL 106.0 MMOL/L (98-107); CREATININE FOR GFR 1.19 MG/DL (0.55-1.30); GLOMERULAR FILTRATION RATE 48.3 (>39); POTASSIUM SERUM 3.5 MMOL/L (3.5-5.1); SODIUM LEVEL 139.0 MMOL/L (136-145)
[2025-10-23] MEDS: VANCOMYCIN HCL 1,000 MG, VIAL MATE ADAPTER 1 EACH in NS 250 ML IV SCH (10:19)
[2025-10-23] MEDS: POTASSIUM CHLORIDE 10MEQ SR TABLET PO SCH (10:20)
[2025-10-23] MEDS: FUROSEMIDE 40 MG TAB PO SCH (10:20)
[2025-10-23 20:42] VITALS: BP 143/66; TEMP 98.2; O2SAT 96
[2025-10-24 06:47] VITALS: BP 149/67; TEMP 98.8; O2SAT 92
[2025-10-24 07:53] LABS: BASO # 0.0 10^3/uL (0.0-0.2); BASO % 0.3 % (0.0-1.0); EOS # 0.3 10^3/uL (0.0-0.5); EOS % 2.9 % (0.0-3.0); LYMPH # 0.6 10^3/uL (1.5-5.0); LYMPH % 5.2 % (24.0-44.0); MONO # 0.7 10^3/uL (0.0-0.8); MONO % 6.0 % (2.0-8.0); NEUTROPHILS # 9.7 10^3/uL (1.5-8.5); NEUTROPHILS % 84.7 % (36.0-66.0); PLATELET COUNT, AUTOMATED 189 10^3/uL (150-450)
[2025-10-24 08:26] LABS: CALCIUM LEVEL 9.1 MG/DL (8.3-10.6); CARBON DIOXIDE LEVEL 21.0 MMOL/L (20-31); CHLORIDE LEVEL 105.0 MMOL/L (98-107); CREATININE FOR GFR 1.17 MG/DL (0.55-1.30); GLOMERULAR FILTRATION RATE 49.3 (>39); POTASSIUM SERUM 3.3 MMOL/L (3.5-5.1); SODIUM LEVEL 139.0 MMOL/L (136-145)
[2025-10-25 07:06] VITALS: BP 150/64; TEMP 98.3; O2SAT 94
[2025-10-25 08:04] LABS: BASO # 0.0 10^3/uL (0.0-0.2); BASO % 0.3 % (0.0-1.0); EOS # 0.3 10^3/uL (0.0-0.5); EOS % 3.7 % (0.0-3.0); LYMPH # 0.6 10^3/uL (1.5-5.0); LYMPH % 7.3 % (24.0-44.0); MONO # 0.6 10^3/uL (0.0-0.8); MONO % 7.7 % (2.0-8.0); NEUTROPHILS # 5.9 10^3/uL (1.5-8.5); NEUTROPHILS % 78.0 % (36.0-66.0); PLATELET COUNT, AUTOMATED 216 10^3/uL (150-450)
[2025-10-25 08:34] VITALS: BP 128/61; O2SAT 94
[2025-10-25 08:39] LABS: CALCIUM LEVEL 9.0 MG/DL (8.3-10.6); CARBON DIOXIDE LEVEL 23.0 MMOL/L (20-31); CHLORIDE LEVEL 106.0 MMOL/L (98-107); CREATININE FOR GFR 1.22 MG/DL (0.55-1.30); GLOMERULAR FILTRATION RATE 46.9 (>39); POTASSIUM SERUM 3.4 MMOL/L (3.5-5.1); SODIUM LEVEL 139.0 MMOL/L (136-145)
[2025-10-25] MEDS ORDERED: RISATAB3 PO (11:45)
[2025-10-25] MEDS ORDERED: LEVO1TAB39 PO (11:45)
[2025-10-25 12:41] VITALS: BP 127/60
== END 2025-10-25 14:56 | DRG 871 ==
LOC: EDBD 12:41 → EDUNIT# 12:41 → M ED 12:41 → M ED INP 12:42 → OBSVTOIN 12:43 → INTOOBSV 12:43 → M MS5PR 23:52 → M ICU 10-20 22:25 → OBSVTOIN 10-22 10:37 → M MS5PR 10-22 21:56
PROVIDERS: ADMIT Internal Medicine Nephrology; ATTEND General Practice
PROC: B246ZZZ Ultrasonography of Right and Left Heart (ICD-10-PCS; principal; 2025-10-21)
DX: A41.9 Sepsis, unspecified organism (principal); G93.41 Metabolic encephalopathy; J15.211 Pneumonia due to Methicillin susceptible Staphylococcus aureus; N18.4 Chronic kidney disease, stage 4 (severe); N39.0 Urinary tract infection, site not specified; E87.1 Hypo-osmolality and hyponatremia; J44.0 Chronic obstructive pulmonary disease with (acute) lower respiratory infection; N17.9 Acute kidney failure, unspecified; K52.1 Toxic gastroenteritis and colitis; R09.02 Hypoxemia; J44.9 Chronic obstructive pulmonary disease, unspecified; E66.01 Morbid (severe) obesity due to excess calories; I25.10 Atherosclerotic heart disease of native coronary artery without angina pectoris; I12.9 Hypertensive chronic kidney disease with stage 1 through stage 4 chronic kidney disease, or unspecified chronic kidney disease; E78.5 Hyperlipidemia, unspecified; R26.89 Other abnormalities of gait and mobility; R29.6 Repeated falls; M47.816 Spondylosis without myelopathy or radiculopathy, lumbar region; K21.9 Gastro-esophageal reflux disease without esophagitis; F32.A Depression, unspecified; F41.1 Generalized anxiety disorder; Z66 Do not resuscitate; I65.23 Occlusion and stenosis of bilateral carotid arteries; E53.8 Deficiency of other specified B group vitamins; D64.9 Anemia, unspecified; E03.9 Hypothyroidism, unspecified; M17.0 Bilateral primary osteoarthritis of knee; E11.22 Type 2 diabetes mellitus with diabetic chronic kidney disease; G89.29 Other chronic pain; M54.12 Radiculopathy, cervical region; R56.9 Unspecified convulsions; G43.909 Migraine, unspecified, not intractable, without status migrainosus; M25.551 Pain in right hip; M25.552 Pain in left hip; B96.20 Unspecified Escherichia coli [E. coli] as the cause of diseases classified elsewhere; M48.061 Spinal stenosis, lumbar region without neurogenic claudication; Z90.49 Acquired absence of other specified parts of digestive tract; T36.0X5A Adverse effect of penicillins, initial encounter; Z68.39 Body mass index [BMI] 39.0-39.9, adult; Z79.82 Long term (current) use of aspirin; Z95.5 Presence of coronary angioplasty implant and graft; Z88.8 Allergy status to other drugs, medicaments and biological substances; Z79.899 Other long term (current) drug therapy; Z88.1 Allergy status to other antibiotic agents; Z79.02 Long term (current) use of antithrombotics/antiplatelets